=== PATIENT | female | born 1940 ===

== ENCOUNTER 2017-06-18 20:30 | Inpatient (IN) | payer MEDICARE ==
[2017-06-18 20:30] VITALS: BMI 39.9
[2017-06-18] MEDS ORDERED: Albuterol-Ipratrop 3 mg / 0.5 (3 ml) UD IH STA (21:59)
[2017-06-18] MEDS ORDERED: Albuterol-Ipratrop 3 mg / 0.5 (3 ml) UD ONE (22:16)
[2017-06-18 22:17] LABS: BASO # 0.1 K/uL (0.0-0.2); BASO % 0.9 % (0.0-2.0); EOS # 0.4 K/uL (0.0-0.7); EOS % 4.2 % (0.0-4.0); HEMATOCRIT 29.6 % (34.0-47.0); LYMPH # 1.4 K/uL (1.0-4.3); LYMPH % 15.2 % (20.0-40.0); MEAN CELL VOLUME 91.3 fL (81.0-99.0); MEAN CORPUSCULAR HEMOGLOBIN 28.9 pg (27.0-31.0); MEAN CORPUSCULAR HGB CONC 31.6 g/dL (33.0-37.0); MEAN PLATELET VOLUME 9.4 fL (7.2-11.7); MONO # 1.1 K/uL (0.0-0.8); MONO % 12.6 % (0.0-10.0); RED CELL DISTRIBUTION WIDTH 19.5 % (11.5-14.5)
[2017-06-18 22:23] LABS: RBC URINE 1 /hpf (0-3); URINE BACTERIA RARE (<OCC); URINE BILIRUBIN NEGATIVE (NEGATIVE); URINE BLOOD NEGATIVE (NEGATIVE); URINE COLOR Straw (YELLOW); URINE GLUCOSE (UA) NORMAL (Normal); URINE KETONE NEGATIVE (NEGATIVE); URINE LEUKOCYTE ESTERASE NEG Leu/uL (Negative); URINE PROTEIN NEGATIVE (NEGATIVE); URINE UROBILINOGEN NORMAL mg/dL (0.2-1.0); WBC URINE 2 /hpf (0-5)
[2017-06-18 22:32] LABS: ALB/GLOB RATIO 1.2 (1.0-2.1); ALKALINE PHOSPHATASE 60 U/L (38-126); ALT/SGPT 29 U/L (9-52); AST/SGOT 26 U/L (14-36); BILIRUBIN,TOTAL 0.3 mg/dL (0.2-1.3); BLOOD UREA NITROGEN 31 mg/dL (7-17); CALCIUM 8.8 mg/dl (8.6-10.4); CARBON DIOXIDE 18 mmol/L (22-30); CHLORIDE 116 mmol/L (98-107); GFR AFRICAN-AMERICAN 38; GLUCOSE,RANDOM 89 mg/dL (65-105); MAGNESIUM 2.1 mg/dL (1.6-2.3); POTASSIUM 4.2 mmol/L (3.6-5.2); SODIUM 147 mmol/L (132-148); TOTAL PROTEIN 6.6 g/dL (6.3-8.3)
[2017-06-18] MEDS ORDERED: Nitroglycerin 2% Ointment Foilpak UD TOP STA (23:05)
[2017-06-18] MEDS ORDERED: Nitroglycerin 2% Ointment Foilpak UD TOP ONE (23:13)
--- NOTE | 2017-06-18 23:55 | C.PDOC ---
Time Seen by Provider: 06/18/17 21:48 Chief Complaint (Nursing): Shortness Of Breath History Per: Patient, Family Onset/Duration Of Symptoms: Days (few) Current Symptoms Are (Timing): Worse Current Respiratory Medications: See Home Med List Severity: Moderate Associated Symptoms: Chest Pain, Ankle/Leg Swelling Additional History Per: Prior Records Past Medical History Reviewed: Historical Data, Nursing Documentation, Vital Signs Vital Signs: Last Vital Signs Temp 98.4 F 06/18/17 21:03 Pulse 60 06/18/17 23:08 Resp 23 06/18/17 23:08 BP 137/48 L 06/18/17 23:08 Pulse Ox 97 06/18/17 23:08 - Medical History PMH: Arthritis, Back Problems, Colonic Polyps, Diabetes, Gastritis, HTN, Hypercholesterolemia, Rheumatoid Arthritis, TIA (3 YEARS AGO) Surgical History: Back Surgery (WITH HARDWARE), Cholecystectomy, Endoscopy - [facility] Procedures COLONOSCOPY (12/30/14) ENDOSC POLYPECTOMY OF LG INTEST (03/03/15) Family History: States: Unknown Family Hx - Social History Hx Tobacco Use: No Hx Alcohol Use: No Hx Substance Use: No - Immunization History Hx Tetanus Toxoid Vaccination: No Hx Influenza Vaccination: Yes Hx Pneumococcal Vaccination: Yes Review Of Systems Except As Marked, All Systems Reviewed And Found Negative. Constitutional: Negative for: Fever Cardiovascular: Positive for: Chest Pain, Edema Respiratory: Positive for: Shortness of Breath. Negative for: Hemoptysis Gastrointestinal: Negative for: Vomiting Genitourinary: Positive for: Frequency Musculoskeletal: Negative for: Neck Pain Neurological: Negative for: Weakness, Numbness Physical Exam - Physical Exam Appears: No Acute Distress, Chronically Ill Skin: Normal Color, Warm, Dry Head: Atraumatic, Normacephalic Eye(s): bilateral: PERRL, EOMI Neck: Normal ROM, Supple Cardiovascular: Rhythm Regular Respiratory: No Accessory Muscle Use, Rales Gastrointestinal/Abdominal: Soft, No Tenderness Extremity: Normal ROM, Pedal Edema Neurological/Psych: Oriented x3, Normal Motor, Normal Sensation ED Course And Treatment - Laboratory Results Result Diagrams: 06/18/17 21:57 06/18/17 22:16 Lab Interpretation: Abnormal Interpretation Of Abnormal: Elevated BNP. Anemia. Renal insufficiency. ECG: Interpreted By Me, Viewed By Me ECG Rhythm: Sinus Rhythm, Nonspecific Changes Rate From EC O2 Sat by Pulse Oximetry: 97 Pulse Ox Interpretation: Normal - Radiology CXR: Interpreted by Me, Viewed By Me CXR Interpretation: Yes: Cardiomegaly, Other (CHF) Progress Note: BP improved after Nitropaste. Progress - Interventions Interventions:: Observation, Oxygen - Medications Administered Oral: Antihypertensive, Aspirin - Data Reviewed Data Reviewed: Lab, Diagnostic imaging, EKG, Old records - Patient Status Patient status: Partially improved - Critical Care Citical Care: Excluding Proc Time Critical Care Time: 45 minutes - Continuity of Care Discussed patient case with:: Patient, Family-HIPPA compliant, ED Nurse, PMD - Patient Plan Patient Plan: Admission, Telemetry Disposition Discussed With DrJayme: Victor Hugo Mccoy Comment: He accepted pt on his service and gave admitting orders to the nurse. Doctor Will See Patient In The: Hospital Counseled Patient/Family Regarding: Studies Performed, Diagnosis - Disposition Disposition: HOSPITALIZED Disposition Time: 23:56 Condition: FAIR - Clinical Impression Clinical Impression: New onset of congestive heart failure
[2017-06-19] MEDS ORDERED: ZOLPIDEM 5 MG PO PRN (00:20)
[2017-06-19 01:14] LABS: INR 1.1
[2017-06-19] MEDS ORDERED: Nitroglycerin 2% Ointment Foilpak UD TOP ONE (06:11)
[2017-06-19] MEDS: Nitroglycerin 2% Ointment Foilpak UD TOP SCH ×3 (06:13→17:39)
--- NOTE | 2017-06-19 08:48 | RAD ---
PROCEDURE: CHEST RADIOGRAPH, 1 VIEW HISTORY: SOB COMPARISON: Comparison is made to 05/20/2017 FINDINGS: LUNGS: Interval worsening of reticular opacity at the mid and lower portion of the lungs suspicious for pulmonary vascular congestion since the previous exam. PLEURA: Blunting of the right costophrenic angle likely due to small pleural effusion. CARDIOVASCULAR: The cardiac silhouette is enlarged. OSSEOUS STRUCTURES: No significant abnormalities. VISUALIZED UPPER ABDOMEN: Normal. OTHER FINDINGS: None. IMPRESSION: Findings suspicious for worsening CHF.
[2017-06-19] MEDS ORDERED: LEFLUNOMIDE 20 MG PO SCH (10:00)
[2017-06-19] MEDS ORDERED: (Novolin N) Insulin Human Isophane (NPH) 100 u/ml 10 ml vial SC SCH (10:00)
[2017-06-19] MEDS ORDERED: (Novolin R) Insulin Human Regular 100 units/ml vial SC SCH (10:00)
[2017-06-19] MEDS: LEFLUNOMIDE 20MG TABLET PO SCH (10:30)
[2017-06-19] MEDS: GlipiZIDE 5 mg SR Tab PO SCH ×2 (10:58→17:39)
[2017-06-19] MEDS: (Novolog) Insulin Aspart, Recombinant 100 u/ml 10 ml vial SC SCH ×2 (17:11→21:30)
--- NOTE | 2017-06-19 23:43 | HP ---
HISTORY OF PRESENT ILLNESS: This is a 77-year-old female with a history of multiple medical problems including diabetes, hypertension, high cholesterol, history of TIA, severe osteoarthritis, possible rheumatoid, under the care of sheep clipper and senior product development scientist, Dr. Mejia and Dr. Brandie Vegas respectively, who came to the emergency room with a history of shortness of breath. Chest x-ray and physical exam along with proBNP was consistent with congestive heart failure. She was recommended admission. PAST MEDICAL HISTORY: History of severe arthritis, back surgery, gastritis, diabetes, hypertension, high cholesterol, history of TIAs 3 years ago. Cholecystectomy. She has been seen by Dr. Coreas to my recollection in the past. MEDICATIONS: At home, she is maintained on Ambien, aspirin, Bystolic 20 mg, glipizide 10 mg twice a day, Lasix 20 mg, Norvasc 5 mg. She is on insulin, Xanax 0.5 mg three times a day. She is also on control drugs, Percocet, Vicodin with other doctor. To my recollection, echocardiogram has been unremarkable with normal LV systolic function in the past. REVIEW OF SYSTEMS: Generalized weakness is noted. Shortness of breath. No fever, no chills, no hemoptysis, no abdominal pain, no vomiting. Frequency is noted. No hematuria. Musculoskeletal: Multiple joint pains, back pains. Neurological: Generalized weakness. No visual disturbances. No history of depression, but anxiety, cannot sleep. PHYSICAL EXAMINATION GENERAL: Elderly female, in no acute distress at this time. VITAL SIGNS: She is 4 feet 11 inches, weighs 200 pounds. Blood pressure was 137/48, repeat one initially was 170/60; heart rate of 88; respiratory rate of 20; afebrile. HEENT: Normal. NECK: Supple. HEART: PMI is not localized. S1, S2 distant. No definite gallops. Grade 2/6 holosystolic murmur in mitral area. LUNGS: Show decreased air entry at both the bases. ABDOMEN: Soft. EXTREMITIES: Unremarkable. No cyanosis, clubbing, or edema. Distal pulses are 1+. No focal sign. LABORATORY DATA: Hemoglobin is 9.3, BUN is 31, creatinine is 1.6. ProBNP was 1200. Chest x-ray had shown CHF. EKG as per ER physician had shown sinus rhythm, nonspecific ST-T changes. ASSESSMENT: This is a 77-year-old female with history of congestive heart failure. PLAN: To continue with beta blockers and small dose of diuretics. We will review the echocardiogram that we have done in the office, may need HERNAN inhibitors. Victor Hugo Mccoy MD
[2017-06-20] MEDS: Nitroglycerin 2% Ointment Foilpak UD TOP SCH ×4 (00:11→17:43)
[2017-06-20 00:12] VITALS: RESP 20
[2017-06-20] MEDS: Pantoprazole 40 mg EC Tab PO SCH (09:48)
[2017-06-20] MEDS: LEFLUNOMIDE 20MG TABLET PO SCH (09:48)
[2017-06-20] MEDS: GlipiZIDE 5 mg SR Tab PO SCH (09:50)
[2017-06-20] MEDS: (Novolog) Insulin Aspart, Recombinant 100 u/ml 10 ml vial SC SCH ×3 (13:10→21:06)
--- NOTE | 2017-06-20 15:08 | CP.PCM.CON ---
History of Present Illness - History of Present Illness History of Present Illness: reason for consultation: shortness of breath 77-year-old female with history of TIA, arthritis, Diabetes, hypertension, hypercholesterolemia presented to emergency room with worsening shortness of breath and swelling of legs. Denies fever chills, denies chest pain, denies cough. Chest x-ray done in the emergency consistent with CHF. Patient denies history of smoking, asthma or COPD. complaining of nocturnal snoring and awakening at night Review of Systems - Review of Systems All systems: reviewed and no additional remarkable complaints except (shortness of breath) Past Patient History - Infectious Disease Hx of Infectious Diseases: None - Past Medical History & Family History Past Medical History?: Yes - Past Social History Smoking Status: Never Smoked - CARDIAC Hx Hypercholesterolemia: Yes Hx Hypertension: Yes - PULMONARY Hx Respiratory Disorders: No - NEUROLOGICAL Hx Transient Ischemic Attacks (TIA): Yes (3 YEARS AGO) - HEENT Hx HEENT Problems: Yes Hx Cataracts: Yes (KENDRA.) - RENAL Hx Chronic Kidney Disease: No - ENDOCRINE/METABOLIC Hx Endocrine Disorders: Yes Hx Diabetes Mellitus Type 2: Yes - HEMATOLOGICAL/ONCOLOGICAL Hx Blood Disorders: No Hx Blood Transfusions: No - INTEGUMENTARY Hx Dermatological Problems: No - MUSCULOSKELETAL/RHEUMATOLOGICAL Hx Falls: No - GASTROINTESTINAL Hx Gastritis: Yes - GENITOURINARY/GYNECOLOGICAL Hx Genitourinary Disorders: No Hx Urinary Tract Infection: Yes - PSYCHIATRIC Hx Substance Use: No - SURGICAL HISTORY Hx Cholecystectomy: Yes - ANESTHESIA Hx Anesthesia: Yes Hx Anesthesia Reactions: No Hx Malignant Hyperthermia: No Meds Allergies/Adverse Reactions: Allergies Allergy/AdvReac Type Severity Reaction Status Date / Time No Known Allergies Allergy Verified 10/25/16 08:00 - Medications Medications: Current Medications Alprazolam (Xanax) 0.25 mg PO BID [facility] Stop: 06/26/17 10:01 Last Admin: 06/20/17 09:48 Dose: 0.25 mg Amlodipine Besylate (Norvasc) 5 mg PO DAILY [facility] Last Admin: 06/20/17 09:50 Dose: 5 mg Aspirin (Aspirin Chewable) 81 mg PO DAILY [facility] Last Admin: 06/20/17 09:49 Dose: 81 mg Furosemide (Lasix) 20 mg IVP BID [facility] Last Admin: 06/20/17 09:49 Dose: 20 mg Glipizide (Glucotrol Xl) 5 mg PO DAILY [facility] Last Admin: 06/20/17 09:50 Dose: 5 mg Heparin Sodium (Porcine) (Heparin) 5,000 units SC Q12 [facility] Last Admin: 06/20/17 09:48 Dose: 5,000 units Home Med (Patient's Own Medication) 1 tab PO DAILY [facility] Last Admin: 06/20/17 09:48 Dose: 1 tab Insulin Aspart (Novolog) 0 unit SC ACHS [facility] PRN Reason: Protocol Last Admin: 06/20/17 13:10 Dose: 1 unit Insulin Human NPH (Novolin N) 50 unit SC QPM [facility] Insulin Human Regular (Novolin R) 14 unit SC ACB [facility] Levothyroxine Sodium (Synthroid) 25 mcg PO DAILY@0630 [facility] Nebivolol (Bystolic) 20 mg PO DAILY [facility] Last Admin: 06/20/17 09:48 Dose: 20 mg Nitroglycerin (Nitro-Bid 2% Oint) 1 ea TOP Q6 [facility] Last Admin: 06/20/17 12:58 Dose: 1 ea Pantoprazole Sodium (Protonix Ec Tab) 40 mg PO DAILY [facility] Last Admin: 06/20/17 09:48 Dose: 40 mg Pneumococcal Polyvalent Vaccine (Pneumovax 23 Vaccine) 0.5 ml IM .ONCE ONE Stop: 06/22/17 10:01 Zolpidem Tartrate (Ambien) 5 mg PO HS PRN PRN Reason: Sleep Physical Exam - Head Exam Head Exam: ATRAUMATIC, NORMOCEPHALIC - ENT Exam ENT Exam: Mucous Membranes Moist - Neck Exam Neck exam: Positive for: Normal Inspection - Respiratory Exam Respiratory Exam: Rales - Cardiovascular Exam Cardiovascular Exam: REGULAR RHYTHM - GI/Abdominal Exam GI & Abdominal Exam: Normal Bowel Sounds, Soft - Extremities Exam Extremities exam: Positive for: pedal edema - Neurological Exam Neurological exam: Alert, Oriented x3 Results - Vital Signs Recent Vital Signs: Last Vital Signs Temp 97.9 F 06/20/17 08:00 Pulse 67 06/20/17 13:09 Resp 20 06/20/17 08:00 BP 132/75 06/20/17 13:09 Pulse Ox 97 06/20/17 08:00 - Labs Result Diagrams: 06/18/17 21:57 06/18/17 22:16 Labs: Laboratory Results - last 24 hr 06/19/17 06/19/17 06/20/17 16:11 21:01 06:15 POC Glucose (mg/dL) 249 H 100 71 06/20/17 11:24 POC Glucose (mg/dL) 189 H Assessment & Plan (1) Dyspnea Status: Acute Comment: most likely secondary to CHF. Echocardiogram and Lasix. Sleep study as outpatient because of history of snoring (2) New onset of congestive heart failure Status: Acute (3) HTN (hypertension) Status: Acute
--- NOTE | 2017-06-20 17:11 | CP.PCM.PN ---
Subjective - Date & Time of Evaluation Date of Evaluation: 06/20/17 Time of Evaluation: 17:10 - Subjective Subjective: less sob.pul consult buddy. Objective - Vital Signs/Intake and Output Vital Signs (last 24 hours): Temp Pulse Resp BP Pulse Ox 98.4 F 63 20 189/63 H 98 06/20/17 16:18 06/20/17 16:18 06/20/17 16:18 06/20/17 16:18 06/20/17 16:18 Intake and Output: 06/20/17 06/20/17 06:59 18:59 Intake Total 300 Balance 300 - Medications Medications: Current Medications Alprazolam (Xanax) 0.25 mg PO BID [facility] Stop: 06/26/17 10:01 Last Admin: 06/20/17 09:48 Dose: 0.25 mg Amlodipine Besylate (Norvasc) 5 mg PO DAILY [facility] Last Admin: 06/20/17 09:50 Dose: 5 mg Aspirin (Aspirin Chewable) 81 mg PO DAILY [facility] Last Admin: 06/20/17 09:49 Dose: 81 mg Furosemide (Lasix) 20 mg IVP BID [facility] Last Admin: 06/20/17 09:49 Dose: 20 mg Glipizide (Glucotrol Xl) 5 mg PO DAILY [facility] Last Admin: 06/20/17 09:50 Dose: 5 mg Heparin Sodium (Porcine) (Heparin) 5,000 units SC Q12 [facility] Last Admin: 06/20/17 09:48 Dose: 5,000 units Home Med (Patient's Own Medication) 1 tab PO DAILY [facility] Last Admin: 06/20/17 09:48 Dose: 1 tab Insulin Aspart (Novolog) 0 unit SC ACHS [facility] PRN Reason: Protocol Last Admin: 06/20/17 16:33 Dose: 1 unit Insulin Human NPH (Novolin N) 50 unit SC QPM [facility] Insulin Human Regular (Novolin R) 14 unit SC ACB [facility] Levothyroxine Sodium (Synthroid) 25 mcg PO DAILY@0630 [facility] Nebivolol (Bystolic) 20 mg PO DAILY [facility] Last Admin: 06/20/17 09:48 Dose: 20 mg Nitroglycerin (Nitro-Bid 2% Oint) 1 ea TOP Q6 [facility] Last Admin: 06/20/17 12:58 Dose: 1 ea Pantoprazole Sodium (Protonix Ec Tab) 40 mg PO DAILY [facility] Last Admin: 06/20/17 09:48 Dose: 40 mg Pneumococcal Polyvalent Vaccine (Pneumovax 23 Vaccine) 0.5 ml IM .ONCE ONE Stop: 06/22/17 10:01 Zolpidem Tartrate (Ambien) 5 mg PO HS PRN PRN Reason: Sleep - Labs Labs: PT 11.8 SECONDS (9.7-12.2) 06/19/17 01:02 INR 1.1 06/19/17 01:02 APTT 32 SECONDS (21-34) 06/19/17 01:02 - Constitutional Appears: No Acute Distress - Eye Exam Eye Exam: Normal appearance - Respiratory Exam Respiratory Exam: Clear to Ausculation Bilateral - Cardiovascular Exam Cardiovascular Exam: REGULAR RHYTHM - GI/Abdominal Exam GI & Abdominal Exam: Soft - Extremities Exam Extremities Exam: absent: Pedal Edema - Neurological Exam Neurological Exam: Alert Assessment and Plan - Assessment and Plan (Free Text) Assessment: chf,better, will d/c home in am
[2017-06-20] MEDS ORDERED: (Novolin N) Insulin Human Isophane (NPH) 100 u/ml 10 ml vial SC SCH (18:00)
[2017-06-21] MEDS: Nitroglycerin 2% Ointment Foilpak UD TOP SCH ×3 (00:13→12:59)
[2017-06-21] MEDS ORDERED: Levothyroxine 25 MCG TAB PO SCH (06:30)
[2017-06-21] MEDS ORDERED: (Novolin R) Insulin Human Regular 100 units/ml vial SC SCH (07:30)
[2017-06-21 07:49] LABS: POTASSIUM 3.8 mmol/L (3.6-5.2)
[2017-06-21 07:52] LABS: CALCIUM 9.1 mg/dl (8.6-10.4)
[2017-06-21 08:41] VITALS: TEMP 97.8; O2SAT 94
[2017-06-21] MEDS: LEFLUNOMIDE 20MG TABLET PO SCH (09:52)
[2017-06-21] MEDS: Pantoprazole 40 mg EC Tab PO SCH (09:52)
[2017-06-21] MEDS: GlipiZIDE 5 mg SR Tab PO SCH (09:53)
[2017-06-21] MEDS: (Novolog) Insulin Aspart, Recombinant 100 u/ml 10 ml vial SC SCH ×2 (09:55→13:07)
[2017-06-21] MEDS ORDERED: ACETAMINOPHEN PO SCH (10:45)
[2017-06-21] MEDS ORDERED: HYDROCODONE PO SCH (10:45)
[2017-06-21] MEDS ORDERED: Iohexol 240 (50 ml) PO ONE (11:00)
[2017-06-21 13:06] VITALS: BP 129/62; PULSE 75
[2017-06-21] MEDS ORDERED: Pneumococcal 23-Valent Vaccine IM ONE (15:00)
--- NOTE | 2017-06-21 15:20 | PCM.HF ---
Heart Failure Core Measure - Heart Failure Ejection Fraction: 40 % or Greater HERNAN Inhibitor Prescribed: No Contraindication/Reason for not providing: on arb Beta-Sue Prescribed: Bisoprolol Angiotensin II Receptor Sue Prescribed: Yes AnticoagulationTherapy for Atrial Fibrillation/Atrialflutter: No Contraindication/Reason for not providing: no hx of a fib Aldosterone Antagonist Prescribed: No Contraindication/Reason for not providing: EF>50 Hydralazine Nitrate Prescribed: No Contraindication/Reason for not providing: ef>50 Implantable Cardioverter Defibrillator Therapy: No Contraindication/Reason for not providing: ef>50 Cardiac Resynchronization Therapy Prescribed: No Contraindication/Reason for not providing: ef>50 - Follow up Will be discharged to: Home Follow Up Date (must be within 7 days from discharge): 06/24/17 Follow Up Time: 09:00
--- NOTE | 2017-06-21 15:52 | CT ---
PROCEDURE: CT Abdomen and Pelvis without IV contrast. HISTORY: Abdominal pain COMPARISON: CT abdomen and pelvis without IV contrast performed 03/09/16 TECHNIQUE: Contiguous axial images of the abdomen and pelvis. Oral contrast was administered. No IV contrast given. Coronal and Sagittal reformats generated and reviewed. Radiation dose: Total exam DLP = 1053.08 mGy-cm. This CT exam was performed using one or more of the following dose reduction techniques: Automated exposure control, adjustment of the mA and/or kV according to patient size, and/or use of iterative reconstruction technique. FINDINGS: There is limited evaluation of the solid organs without the administration of IV contrast. LOWER THORAX: No visible consolidation, pleural effusion, or pneumothorax. Small hiatal hernia/distal esophageal wall thickening with evidence of gastroesophageal reflux. LIVER: Unremarkable unenhanced appearance. GALLBLADDER AND BILE DUCTS: Cholecystectomy. PANCREAS: Atrophy. SPLEEN: Unremarkable unenhanced appearance. ADRENALS: Unremarkable unenhanced appearance. KIDNEYS AND URETERS: Atrophic bilateral kidneys. 2.1 cm low-density lesion within the right upper pole kidney appears cystic. No hydronephrosis or obstructing renal calculus. BLADDER: Mildly thick-walled under distended urinary bladder. REPRODUCTIVE: Uterus is present. APPENDIX: No secondary signs of acute appendicitis. BOWEL: The stomach is nondistended. The bowel loops appear within normal limits of caliber without evidence of intestinal obstruction. Diverticulosis without CT evidence of acute diverticulitis. PERITONEUM: No significant free fluid. No definite free air. LYMPH NODES: No bulky lymphadenopathy identified. VASCULATURE: No aortic aneurysm. BONES: Scoliosis. Posterior lumbar fusion L4-L5. Multilevel degenerative changes. OTHER FINDINGS: None. IMPRESSION: Small hiatal hernia/ distal esophageal wall thickening with evidence of gastroesophageal reflux. Cholecystectomy. Pancreatic atrophy. Atrophic bilateral kidneys. 2.1 cm low-density lesion within the right upper pole kidney appears cystic. Diverticulosis without CT evidence of acute diverticulitis. Scoliosis. Posterior lumbar fusion at L4-L5.
--- NOTE | 2017-06-21 22:33 | CARD ---
APPROVED REPORT EKG Measurement Heart [id number] <Conclusion> Normal sinus rhythm Low voltage QRS Septal infarct, age undetermined Abnormal ECG
--- NOTE | 2017-06-22 09:32 | DS ---
HISTORY OF PRESENT ILLNESS: A 77-year-old female was brought in with a history of shortness of breath. She had a mild congestive heart failure. She is diabetic, hypertensive. There was an echocardiogram which was done in the past, there was no need to repeat. To my recollection, LV systolic function has been normal. No significant valvular heart disease . She was given small dose of diuretics with the improvement. She does have some vague abdominal pain and discussed the case with KATY Jauregui MD, who has gone to order the CT of the abdomen and has an appointment to see him tomorrow. PHYSICAL EXAMINATION: GENERAL: She is asymptomatic. VITAL SIGNS: At this point, vital signs are stable. LUNGS: Clear. LABORATORY DATA: Troponins were negative. EKG did not have any acute changes. PLAN: We will discharge her to be followed up as an outpatient on the same antihypertensive medications and diabetic medication. She has a history of multiple arthritis, pains, back pains and the rolling walker has been given. She also has an appointment to see epidemiology investigator and she has been under controlled substance and antiinflammatory medication, which might make her abdominal pain worse. She will see Dr. Brandie Vegas as an outpatient for diabetes. FINAL DIAGNOSES: Mild congestive heart failure, systolic, chronic. Diabetes and hypertension. Victor Hugo Mccoy MD
[2017-06-22] MEDS ORDERED: Pneumococcal 23-Valent Vaccine IM ONE (10:00)
== END 2017-06-21 15:40 | disposition home or self-care (01) | DRG 293 ==
LOC: C.ER 20:30 → C.9E 06-19 00:34 → C.5S 06-19 09:06
PROVIDERS: ADMIT Internal Medicine Cardiovascular Disease; ATTEND Internal Medicine Cardiovascular Disease
DX: I11.0 Hypertensive heart disease with heart failure (principal); E11.9 Type 2 diabetes mellitus without complications; M06.9 Rheumatoid arthritis, unspecified; I50.22 Chronic systolic (congestive) heart failure; E78.00 Pure hypercholesterolemia, unspecified; M19.90 Unspecified osteoarthritis, unspecified site; Z86.010 Personal history of colon polyps; Z86.73 Personal history of transient ischemic attack (TIA), and cerebral infarction without residual deficits; Z87.440 Personal history of urinary (tract) infections; K29.70 Gastritis, unspecified, without bleeding

== ENCOUNTER 2017-10-27 09:53 | Inpatient (IN) | payer MEDICARE ==
[2017-10-27 10:11] VITALS: BMI 41.2
[2017-10-27] MEDS ORDERED: Albuterol 0.083% Inhal Sol (2.5 mg/3 mL) UD INH STA (11:01)
--- NOTE | 2017-10-27 11:08 | C.PDOC ---
History Of Present Illness 77 yr old female presents to the ER for evaluation of abdominal pain, radiating down to the pelvis and leg for the past 1 week. Denies fever, chills, chest pain , SOB, nausea, vomiting or dysuria. Time Seen by Provider: 10/27/17 10:47 Chief Complaint (Nursing): Abdominal Pain History Per: Patient History/Exam Limitations: no limitations Onset/Duration Of Symptoms: Days (1 week) Past Medical History Reviewed: Historical Data, Nursing Documentation, Vital Signs Vital Signs: Last Vital Signs Temp 97 F L 10/27/17 12:30 Pulse 73 10/27/17 12:30 Resp 18 10/27/17 12:30 BP 121/68 10/27/17 12:30 Pulse Ox 98 10/27/17 12:34 - Medical History PMH: Arthritis, Back Problems, Colonic Polyps, Diabetes, Gastritis, HTN, Hypercholesterolemia, Rheumatoid Arthritis, TIA (3 YEARS AGO) Surgical History: Back Surgery (WITH HARDWARE), Cholecystectomy, Endoscopy - [facility] Procedures COLONOSCOPY (12/30/14) ENDOSC POLYPECTOMY OF LG INTEST (03/03/15) Family History: States: No Known Family Hx - Social History Hx Tobacco Use: No Hx Alcohol Use: No Hx Substance Use: No - Immunization History Hx Tetanus Toxoid Vaccination: No Hx Influenza Vaccination: Yes Hx Pneumococcal Vaccination: Yes Review Of Systems Except As Marked, All Systems Reviewed And Found Negative. Constitutional: Negative for: Fever, Chills Cardiovascular: Negative for: Chest Pain Respiratory: Negative for: Shortness of Breath Gastrointestinal: Positive for: Abdominal Pain. Negative for: Nausea, Vomiting Genitourinary: Negative for: Dysuria Physical Exam - Physical Exam Appears: Non-toxic, No Acute Distress Skin: Warm, Dry, No Rash Head: Atraumatic, Normacephalic Oral Mucosa: Moist Cardiovascular: Rhythm Regular, No Murmur Respiratory: No Rales, No Rhonchi, No Stridor, Wheezing (faint expirtory wheez, bilateral) Gastrointestinal/Abdominal: Normal Exam, Soft, No Tenderness, No Guarding, No Rebound Extremity: Normal ROM, No Swelling, Other ((+) +1 bilateral pitting edema) Neurological/Psych: Oriented x3, Normal Speech, Normal Motor ED Course And Treatment - Laboratory Results Result Diagrams: 10/27/17 11:44 10/27/17 11:44 O2 Sat by Pulse Oximetry: 98 (RA) Pulse Ox Interpretation: Normal - CT Scan/US CT - Abd & Pelvis Other Rad Studies (CT/US): Read By Radiologist, Radiology Report Reviewed CT/US Interpretation: PROCEDURE: CT scan abdomen pelvis dated 10/27/2017. HISTORY: Abdominal pain. COMPARISON: Comparison made with prior CT scan of the abdomen pelvis 06/21/2017. TECHNIQUE: Contiguous helical/transaxial images of the abdomen and pelvis performed without oral or intravenous contrast. Coronal and sagittal reformats generated. Radiation dose: Total exam DLP = 1147.39 mGy-cm. This CT exam was performed using one or more of the following dose reduction techniques: Automated exposure control, adjustment of the mA and/or kV according to patient size, and/or use of iterative reconstruction technique. FINDINGS: LOWER THORAX: Patchy nodular/alveolar- type infiltrate changes seen in the right lung base and right middle lobe. Mild passive/dependent type atelectasis both posterior sulci. LIVER: Liver exhibits normal size. No evidence of hepatic masses or collections seen on this noncontrast study. Gallbladder has been. GALLBLADDER AND BILE DUCTS: Gallbladder has been surgically resected with metallic clips again seen in the gallbladder fossa. PANCREAS: Pancreas masses is atrophic and fatty replaced. No pancreatic masses or collections. No significant pancreatic ductal dilatation. SPLEEN: Unremarkable. No splenomegaly. ADRENALS: There are no adrenal lesions. KIDNEYS AND URETERS: Kidneys are diminutive left more significant than the right. Again seen is a cyst posteromedial aspect upper/ midpole left kidney. BLADDER: Urinary bladder is physiologically distended. No evidence of intraluminal urinary bladder calculi. REPRODUCTIVE: Peripheral presumed vascular calcifications of along the peripheral margins of the uterus unchanged. APPENDIX: Normal-appearing appendix. BOWEL: There is a small hiatal hernia. Evaluation of the bowel is limited due to the lack of oral contrast. Stomach is incompletely distended. . Visualized loops of small bowel exhibit normal contour and caliber. No evidence of acute mechanical small bowel obstruction. There are scattered colonic diverticula seen along the sigmoid and to a lesser degree distal descending colon. No radiographic evidence of acute diverticulitis. PERITONEUM: Unremarkable. No fluid collection. No free air. Incidental note made of infiltration changes within the subcutaneous fat left upper abdomen nonspecific. LYMPH NODES: Unremarkable. No enlarged lymph nodes. VASCULATURE: Unremarkable. No aortic aneurysm. BONES: Postoperative posterior fixation changes L4-L5 segments again noted on altered from prior study. Multilevel degenerative spondylosis of the lumbar and lower thoracic spine. There is a mild dextroscoliosis centered in the lower thoracic region. OTHER FINDINGS: None. IMPRESSION: Patchy nodular/alveolar-type infiltrates changes right lower lobe and middle lobes. Changes of cholecystectomy again noted. Kidneys are diminutive more so on the left than right with. Stable appearing cyst upper pole right kidney. Scattered colonic diverticula without radiographic evidence of acute diverticulitis. Medical Decision Making Medical Decision Making: IMPRESSION: Abdominal pain/CHF PLAN: * CT - Abd & Pelvis * CXR * EKG * Troponin * CBC * CMP * BNP * Urinalysis * Albuterol INH NOTE: * Patient to be admitted to Dr. Mccoy for CHF, tele Disposition Discussed With : Victor Hugo Mccoy Doctor Will See Patient In The: ED Counseled Patient/Family Regarding: Studies Performed, Diagnosis - Disposition Disposition: HOSPITALIZED Disposition Time: 12:26 Condition: FAIR - Clinical Impression Clinical Impression: CHF (congestive heart failure) - Scribe Statement The provider has reviewed the documentation as recorded by the Fengibdayron Perez Provider Attestation: All medical record entries made by the Fengibdayron were at my direction and personally dictated by me. I have reviewed the chart and agree that the record accurately reflects my personal performance of the history, physical exam, medical decision making, and the department course for this patient. I have also personally directed, reviewed, and agree with the discharge instructions and disposition.
[2017-10-27] MEDS ORDERED: Albuterol 0.083% Inhal Sol (2.5 mg/3 mL) UD ONE (11:38)
[2017-10-27 11:49] LABS: BASO # 0.1 K/uL (0.0-0.2); BASO % 0.8 % (0.0-2.0); EOS # 0.5 K/uL (0.0-0.7); EOS % 4.5 % (0.0-4.0); HEMOGLOBIN 9.9 g/dL (11.0-16.0); LYMPH # 0.9 K/uL (1.0-4.3); LYMPH % 8.3 % (20.0-40.0); MEAN CORPUSCULAR HEMOGLOBIN 31.4 pg (27.0-31.0); MEAN CORPUSCULAR HGB CONC 33.4 g/dL (33.0-37.0); MEAN PLATELET VOLUME 9.5 fL (7.2-11.7); MONO # 0.8 K/uL (0.0-0.8); MONO % 7.6 % (0.0-10.0); NEUT # 8.6 K/uL (1.8-7.0); NEUT % 78.8 % (50.0-75.0); PLATELET COUNT 259 K/uL (130-400); RBC 3.17 Mil/uL (3.80-5.20); RED CELL DISTRIBUTION WIDTH 16.6 % (11.5-14.5); WHITE BLOOD COUNT 10.9 K/uL (4.8-10.8)
[2017-10-27 12:04] LABS: ALBUMIN 3.6 g/dL (3.5-5.0); ALT/SGPT 22 U/L (9-52); AST/SGOT 24 U/L (14-36); BLOOD UREA NITROGEN 31 mg/dL (7-17); CALCIUM 8.7 mg/dl (8.6-10.4); GFR AFRICAN-AMERICAN 38; GFR NON-AFRICAN AMERICAN 31; LIPASE 39 U/L (23-300)
[2017-10-27 12:16] LABS: B-TYPE NATRIURETIC PEPTIDE 1600 pg/mL (0-900); BANDS 6 % (0-2); BASOPHIL 1 % (0-2); EOSINOPHIL 4 % (0-4); LYMPHOCYTE 5 % (20-40); MONOCYTE 5 % (0-10); NEUTROPHIL 79 % (50-75); TOTAL CELLS COUNTED 100
[2017-10-27 12:17] LABS: PLATELET ESTIMATE NORMAL (NORMAL)
[2017-10-27 12:20] LABS: LARGE PLATELETS PRESENT
[2017-10-27 12:21] LABS: HYPOCHROMIC SLIGHT; POLYCHROMIC SLIGHT
[2017-10-27 12:22] LABS: ANISOCYTOSIS MODERATE; POIKILOCYTOSIS SLIGHT
[2017-10-27 12:24] LABS: OVALOCYTES SLIGHT; SCHISTOCYTES SLIGHT
[2017-10-27 14:18] LABS: SQUAMOUS EPITHIAL < 1 /hpf (0-5); URINE BILIRUBIN NEGATIVE (NEGATIVE); URINE BLOOD NEGATIVE (NEGATIVE); URINE CLARITY Clear (Clear); URINE COLOR Colorless (YELLOW); URINE GLUCOSE (UA) NORMAL (Normal); URINE LEUKOCYTE ESTERASE NEG Leu/uL (Negative); URINE NITRATE NEGATIVE (NEGATIVE); URINE PROTEIN NEGATIVE (NEGATIVE); URINE UROBILINOGEN NORMAL mg/dL (0.2-1.0)
--- NOTE | 2017-10-27 15:45 | CT ---
PROCEDURE: CT scan abdomen pelvis dated 10/27/2017 HISTORY: Abdominal pain. COMPARISON: Comparison made with prior CT scan of the abdomen pelvis 06/21/2017 TECHNIQUE: Contiguous helical/transaxial images of the abdomen and pelvis performed without oral or intravenous contrast. Coronal and sagittal reformats generated. Radiation dose: Total exam DLP = 1147.39 mGy-cm. This CT exam was performed using one or more of the following dose reduction techniques: Automated exposure control, adjustment of the mA and/or kV according to patient size, and/or use of iterative reconstruction technique. FINDINGS: LOWER THORAX: Patchy nodular/alveolar-type infiltrate changes seen in the right lung base and right middle lobe. Mild passive/dependent type atelectasis both posterior sulci LIVER: Liver exhibits normal size. No evidence of hepatic masses or collections seen on this noncontrast study. Gallbladder has been GALLBLADDER AND BILE DUCTS: Gallbladder has been surgically resected with metallic clips again seen in the gallbladder fossa. PANCREAS: Pancreas masses is atrophic and fatty replaced. No pancreatic masses or collections. No significant pancreatic ductal dilatation. SPLEEN: Unremarkable. No splenomegaly. ADRENALS: There are no adrenal lesions KIDNEYS AND URETERS: Kidneys are diminutive left more significant than the right. Again seen is a cyst posteromedial aspect upper/ midpole left kidney BLADDER: Urinary bladder is physiologically distended. No evidence of intraluminal urinary bladder calculi. REPRODUCTIVE: Peripheral presumed vascular calcifications of along the peripheral margins of the uterus unchanged. APPENDIX: Normal-appearing appendix. BOWEL: There is a small hiatal hernia. Evaluation of the bowel is limited due to the lack of oral contrast. Stomach is incompletely distended. . Visualized loops of small bowel exhibit normal contour and caliber. No evidence of acute mechanical small bowel obstruction. There are scattered colonic diverticula seen along the sigmoid and to a lesser degree distal descending colon. No radiographic evidence of acute diverticulitis. PERITONEUM: Unremarkable. No fluid collection. No free air. Incidental note made of infiltration changes within the subcutaneous fat left upper abdomen nonspecific. LYMPH NODES: Unremarkable. No enlarged lymph nodes. VASCULATURE: Unremarkable. No aortic aneurysm. BONES: Postoperative posterior fixation changes L4-L5 segments again noted on altered from prior study. Multilevel degenerative spondylosis of the lumbar and lower thoracic spine. There is a mild dextroscoliosis centered in the lower thoracic region. OTHER FINDINGS: None. IMPRESSION: Patchy nodular/alveolar-type infiltrates changes right lower lobe and middle lobes. Changes of cholecystectomy again noted. Kidneys are diminutive more so on the left than right with. Stable appearing cyst upper pole right kidney. Scattered colonic diverticula without radiographic evidence of acute diverticulitis.
--- NOTE | 2017-10-27 16:07 | RAD ---
PROCEDURE: CHEST RADIOGRAPH, 1 VIEW HISTORY: abd pain COMPARISON: 06/18/2017 FINDINGS: LUNGS: Coalescing airspace opacity -right lung base and can less dense airspace opacity right mid lung zone compatible with infiltrates PLEURA: No pneumothorax. Small right pleural effusion possible. Summation of prominent breast soft tissues another consideration CARDIOVASCULAR: Mild cardiomegaly. Minimal central pulmonary venous congestion possible -less pronounced than before OSSEOUS STRUCTURES: Minimal thoracic spondylosis. Bilateral shoulder arthrosis VISUALIZED UPPER ABDOMEN: Normal. OTHER FINDINGS: None. IMPRESSION: Right basal infiltrate suggested. Additional less dense right mid lung zone infiltrate possible.
[2017-10-27 17:34] VITALS: RESP 20
--- NOTE | 2017-10-27 20:53 | CARD ---
APPROVED REPORT EKG Measurement Heart [id number] CT 150P55 [id number] <Conclusion> Normal sinus rhythm Anteroseptal infarct, age undetermined Abnormal ECG
[2017-10-27] MEDS: (Novolin R) Insulin Human Regular 100 units/ml vial SC SCH (21:30)
--- NOTE | 2017-10-27 23:18 | HP ---
HISTORY OF PRESENT ILLNESS: This is a 77-year-old male who was brought in with history of increasing shortness of breath for past 2 days. For past 5 days, she has lost her appetite, gained 5 pounds. She has a known history of hypertension, diabetes, presumed CAD, and diffuse diverticulosis. MEDICATIONS AT HOME: Include Glucotrol XL 10 mg morning, Neurontin 300 mg twice a day, Lipitor 20 mg, Protonix 40 mg, Humulin units in the noon and 20 units in the morning, Dulera, Xanax, Bystolic 20 mg, and Diovan 320 mg. Also include, Ambien. She was on spironolactone also. Bystolic was discontinued and total of 50 mg was added. PERSONAL HISTORY: Does not smoke. Does not drink. ALLERGIES: DENIED. FAMILY HISTORY: No history of diabetes or CAD. Positive for hypertension. REVIEW OF SYSTEMS: CONSTITUTIONAL: Generalized weakness is noted. No fever. No chills. No headaches. EYES: No visual disturbances. No history or glaucoma. EARS: No hearing loss. NECK: No swollen glands. RESPIRATORY: Negative for cough. Wheezing is noted. Shortness of breath. CARDIAC: Denies any chest pain. Shortness of breath more so in past few days. Increasing edema in past 5 days. GASTROINTESTINAL: Abdominal pain, diffuse and nonspecific with a poor appetite. No hematemesis. No melena. GENITOURINARY: Negative for dysuria. MUSCULOSKELETAL: Multiple and severe osteoarthritis involving lot of joints, more so in the back, both the knee joints. She is under the care of Dr. Mejia, machine cleaner in [place]. PERIPHERAL VASCULAR SYSTEM: Negative for claudication, although she does not walk around much. NEUROLOGICAL: Tingling and numbness are noted in legs. She has peripheral neuropathy. PAST MEDICAL HISTORY: Admitted in the past for CHF in 2016, CVA in 2014 at [facility] with a good recovery, status post cholecystectomy many years ago, cataract surgery, and back surgery. PHYSICAL EXAMINATION: GENERAL: Shows elderly female who is chronically sick looking, in mild distress because of the back pains and abdominal pains. She is 4 feet 11 inches and weighs 202 pounds. VITAL SIGNS: Blood pressure is 136/70, heart rate of 60 and regular, respiratory rate of 20, afebrile. HEENT: No neck vein distention. No carotid bruits. Mouth, full upper dentures. No exudate. NECK: Supple. LUNGS: Few basal rales and decreased air entry, more in the left base. CARDIAC: PMI is not localized. S1 and S2 is distant. No definite gallops heard. A 2/6 systolic ejection murmur in aortic area. ABDOMEN: Distended but nonspecific tenderness is noted. MUSCULOSKELETAL SYSTEM: Severe arthritis. EXTREMITIES: Show 2+ pitting edema knee down. NEUROLOGIC: Awake, alert, and oriented x3. No focal signs. PSYCHIATRIC: There is no evidence of depression. DIAGNOSTIC DATA: EKG showed sinus rhythm, possible old anteroseptal wall CA. Chest x-ray shows CHF. Pro-BNP is elevated at 1500 plus. Creatinine is 1.6. ASSESSMENT: A 77-year-old female with a history of congestive heart failure, appears to be more of a diastolic failure. Previous echocardiogram done on February 26 had shown EF of 50% to 55%. PLAN: At this point, is to admit to telemetry, diuretics, and continue with beta-blockers and HERNAN inhibitors. We will add nitrates. We will discuss with the family if they are agreeable for angiogram, possible ischemic etiology, although they did not want it on the previous occasions. I thank you kindly. Victor Hugo Mccoy MD
[2017-10-28] MEDS: (Novolin R) Insulin Human Regular 100 units/ml vial SC SCH ×4 (08:20→22:26)
[2017-10-28] MEDS: Pantoprazole 40 mg EC Tab PO SCH (09:40)
[2017-10-28] MEDS: GlipiZIDE 5 mg SR Tab PO SCH (09:40)
--- NOTE | 2017-10-28 12:05 | CP.PCM.PN ---
Subjective - Date & Time of Evaluation Date of Evaluation: 10/28/17 Time of Evaluation: 12:03 - Subjective Subjective: pains all over.breathing better.ct noted. Objective - Vital Signs/Intake and Output Vital Signs (last 24 hours): Temp Pulse Resp BP Pulse Ox 97.8 F 88 20 112/88 99 10/28/17 08:08 10/28/17 08:51 10/28/17 08:08 10/28/17 09:41 10/28/17 08:08 Intake and Output: 10/28/17 10/28/17 06:59 18:59 Intake Total 320 Balance 320 - Medications Medications: Current Medications Alprazolam (Xanax) 0.5 mg PO BID PRN PRN Reason: Anxiety Amlodipine Besylate (Norvasc) 5 mg PO QAM [facility] Last Admin: 10/28/17 09:40 Dose: 5 mg Aspirin (Aspirin Chewable) 81 mg PO DAILY [facility] Last Admin: 10/28/17 09:41 Dose: 81 mg Clopidogrel Bisulfate (Plavix) 75 mg PO DAILY [facility] Last Admin: 10/28/17 09:40 Dose: 75 mg Furosemide (Lasix) 20 mg IVP BID [facility] Last Admin: 10/28/17 09:41 Dose: 20 mg Gabapentin (Neurontin) 600 mg PO BID [facility] Last Admin: 10/28/17 09:40 Dose: 600 mg Glipizide (Glucotrol Xl) 5 mg PO DAILY [facility] Last Admin: 10/28/17 09:40 Dose: 5 mg Heparin Sodium (Porcine) (Heparin) 5,000 units SC Q12 [facility] Last Admin: 10/28/17 09:42 Dose: 5,000 units Insulin Human NPH (Novolin N) 20 unit SC QPM [facility] Insulin Human Regular (Novolin R) 0 unit SC ACHS [facility] PRN Reason: Protocol Last Admin: 10/28/17 08:20 Dose: 1 unit Losartan Potassium (Cozaar) 100 mg PO DAILY [facility] Last Admin: 10/28/17 09:40 Dose: 100 mg Nebivolol (Bystolic) 20 mg PO QPM [facility] Pantoprazole Sodium (Protonix Ec Tab) 40 mg PO DAILY [facility] Last Admin: 10/28/17 09:40 Dose: 40 mg Rosuvastatin Calcium (Crestor) 10 mg PO HS [facility] Last Admin: 10/27/17 21:47 Dose: 10 mg Zolpidem Tartrate (Ambien) 5 mg PO HS PRN PRN Reason: Sleep - Labs Labs: 10/27/17 11:44 10/28/17 06:56 - Constitutional Appears: No Acute Distress, Chronically Ill - Head Exam Head Exam: NORMOCEPHALIC - Neck Exam Neck Exam: Normal Inspection - Respiratory Exam Respiratory Exam: Clear to Ausculation Bilateral - Cardiovascular Exam Cardiovascular Exam: REGULAR RHYTHM - GI/Abdominal Exam GI & Abdominal Exam: Soft - Extremities Exam Extremities Exam: absent: Pedal Edema - Neurological Exam Neurological Exam: Alert, Oriented x3 Assessment and Plan - Assessment and Plan (Free Text) Assessment: chf,poss pneumonia.pul eval Plan: pul eval.ct iv lasix
[2017-10-28] MEDS ORDERED: Oxycodone/Acetaminophen 5/325 mg Tab PO PRN (12:09)
--- NOTE | 2017-10-28 16:21 | CP.PCM.CON ---
History of Present Illness - History of Present Illness History of Present Illness: Reason for consultation: right lung infiltrate 77-year-old female with diabetes, hypertension, arthritis, lacunar infarct presented to emergency room with abdominal pain. Chest x-ray done showed right lung infiltrate. Patient denies fever but complaining of slight cough. No shortness of breath. Review of Systems - Review of Systems All systems: reviewed and no additional remarkable complaints except Past Patient History - Infectious Disease Hx of Infectious Diseases: None - Past Medical History & Family History Past Medical History?: Yes - Past Social History Smoking Status: Never Smoked - CARDIAC Hx Cardiac Disorders: Yes Hx Hypercholesterolemia: Yes Hx Hypertension: Yes - PULMONARY Hx Respiratory Disorders: No - NEUROLOGICAL Hx Neurological Disorder: No Hx Transient Ischemic Attacks (TIA): Yes (3 YEARS AGO) - HEENT Hx HEENT Problems: Yes Hx Cataracts: Yes (KENDRA.) - RENAL Hx Chronic Kidney Disease: No - ENDOCRINE/METABOLIC Hx Endocrine Disorders: Yes Hx Diabetes Mellitus Type 2: Yes - HEMATOLOGICAL/ONCOLOGICAL Hx Blood Disorders: No Hx Blood Transfusions: No - INTEGUMENTARY Hx Dermatological Problems: No - MUSCULOSKELETAL/RHEUMATOLOGICAL Hx Musculoskeletal Disorders: No Hx Falls: No - GASTROINTESTINAL Hx Gastrointestinal Disorders: Yes Hx Gastritis: Yes - GENITOURINARY/GYNECOLOGICAL Hx Genitourinary Disorders: No Hx Urinary Tract Infection: Yes - PSYCHIATRIC Hx Psychophysiologic Disorder: No Hx Substance Use: No - SURGICAL HISTORY Hx Surgeries: Yes Hx Cholecystectomy: Yes - ANESTHESIA Hx Anesthesia: Yes Hx Anesthesia Reactions: No Hx Malignant Hyperthermia: No Has any member of the family had a problem w/ anesthesia?: No Meds Allergies/Adverse Reactions: Allergies Allergy/AdvReac Type Severity Reaction Status Date / Time No Known Allergies Allergy Verified 10/27/17 10:10 - Medications Medications: Current Medications Alprazolam (Xanax) 0.5 mg PO BID PRN PRN Reason: Anxiety Amlodipine Besylate (Norvasc) 5 mg PO QAM [facility] Last Admin: 10/28/17 09:40 Dose: 5 mg Aspirin (Aspirin Chewable) 81 mg PO DAILY [facility] Last Admin: 10/28/17 09:41 Dose: 81 mg Clopidogrel Bisulfate (Plavix) 75 mg PO DAILY [facility] Last Admin: 10/28/17 09:40 Dose: 75 mg Furosemide (Lasix) 20 mg IVP BID [facility] Last Admin: 10/28/17 09:41 Dose: 20 mg Gabapentin (Neurontin) 600 mg PO BID [facility] Last Admin: 10/28/17 09:40 Dose: 600 mg Glipizide (Glucotrol Xl) 5 mg PO DAILY [facility] Last Admin: 10/28/17 09:40 Dose: 5 mg Heparin Sodium (Porcine) (Heparin) 5,000 units SC Q12 [facility] Last Admin: 10/28/17 09:42 Dose: 5,000 units Ceftriaxone Sodium 1 gm/ (Sodium Chloride) 100 mls @ 100 mls/hr IVPB DAILY [facility] Azithromycin 500 mg/ Sodium (Chloride) 250 mls @ 250 mls/hr IVPB DAILY [facility] Insulin Human NPH (Novolin N) 20 unit SC QPM [facility] Insulin Human Regular (Novolin R) 0 unit SC ACHS [facility] PRN Reason: Protocol Last Admin: 10/28/17 12:10 Dose: 3 unit Losartan Potassium (Cozaar) 100 mg PO DAILY [facility] Last Admin: 10/28/17 09:40 Dose: 100 mg Nebivolol (Bystolic) 20 mg PO QPM [facility] Oxycodone/Acetaminophen (Percocet 5/325 Mg Tab) 1 tab PO Q6H PRN PRN Reason: Pain, moderate (4-7) Stop: 10/31/17 12:10 Pantoprazole Sodium (Protonix Ec Tab) 40 mg PO DAILY [facility] Last Admin: 10/28/17 09:40 Dose: 40 mg Rosuvastatin Calcium (Crestor) 10 mg PO HS [facility] Last Admin: 10/27/17 21:47 Dose: 10 mg Zolpidem Tartrate (Ambien) 5 mg PO HS PRN PRN Reason: Sleep Physical Exam - Eye Exam Eye Exam: Normal appearance - ENT Exam ENT Exam: Mucous Membranes Moist - Neck Exam Neck exam: Positive for: Normal Inspection - Respiratory Exam Respiratory Exam: Rales - Cardiovascular Exam Cardiovascular Exam: REGULAR RHYTHM - GI/Abdominal Exam GI & Abdominal Exam: Normal Bowel Sounds, Soft - Extremities Exam Extremities exam: Positive for: normal inspection - Neurological Exam Neurological exam: Alert, Oriented x3 Results - Vital Signs Recent Vital Signs: Last Vital Signs Temp 98.9 F 10/28/17 16:00 Pulse 73 10/28/17 16:00 Resp 20 10/28/17 16:00 BP 128/66 10/28/17 16:00 Pulse Ox 95 10/28/17 16:00 - Labs Result Diagrams: 10/27/17 11:44 10/28/17 06:56 Labs: Laboratory Results - last 24 hr 10/27/17 10/27/17 10/27/17 18:42 18:44 19:51 Sodium Potassium Chloride Carbon Dioxide Anion Gap BUN Creatinine Est GFR ( Amer) Est GFR (Non-Af Amer) POC Glucose (mg/dL) 38 L* 41 L 82 Random Glucose Calcium 10/27/17 10/28/17 10/28/17 21:21 02:09 06:30 Sodium Potassium Chloride Carbon Dioxide Anion Gap BUN Creatinine Est GFR ( Amer) Est GFR (Non-Af Amer) POC Glucose (mg/dL) 184 H 209 H 198 H Random Glucose Calcium 10/28/17 10/28/17 06:56 12:15 Sodium 140 Potassium 3.6 Chloride 107 Carbon Dioxide 24 Anion Gap 13 BUN 29 H Creatinine 1.5 H Est GFR ( Amer) 41 Est GFR (Non-Af Amer) 33 POC Glucose (mg/dL) 285 H Random Glucose 192 H Calcium 8.0 L Assessment & Plan (1) Pulmonary infiltrate in right lung on CXR Status: Acute Comment: chest x-ray showed right lung infiltrate. Slightly high white count. Check pro calcitonin level. Antibiotic coverage
[2017-10-28] MEDS: (Novolin N) Insulin Human Isophane (NPH) 100 u/ml 10 ml vial SC SCH (18:14)
[2017-10-28] MEDS: Azithromycin 500 MG in Sodium Chloride 0.9% 250 ML IVPB SCH (19:15)
[2017-10-29 07:56] LABS: CALCIUM 8.9 mg/dl (8.6-10.4)
[2017-10-29] MEDS: (Novolin R) Insulin Human Regular 100 units/ml vial SC SCH ×4 (08:43→21:53)
[2017-10-29] MEDS: GlipiZIDE 5 mg SR Tab PO SCH (09:36)
[2017-10-29] MEDS: Pantoprazole 40 mg EC Tab PO SCH (09:36)
[2017-10-29] MEDS ORDERED: Atropine-Diphenoxylate 0.025-2.5 mg Tab PO ONE (10:00)
--- NOTE | 2017-10-29 15:05 | CP.PCM.PN ---
Subjective - Date & Time of Evaluation Date of Evaluation: 10/29/17 Time of Evaluation: 15:03 - Subjective Subjective: diarrea better.seen by pul ,dr rushing.on zithromax Objective - Vital Signs/Intake and Output Vital Signs (last 24 hours): Temp Pulse Resp BP Pulse Ox 98.7 F 73 20 152/73 H 94 L 10/29/17 08:48 10/29/17 08:48 10/29/17 08:48 10/29/17 09:34 10/29/17 08:48 Intake and Output: 10/29/17 10/29/17 06:59 18:59 Intake Total 250 Balance 250 - Medications Medications: Current Medications Alprazolam (Xanax) 0.5 mg PO BID PRN PRN Reason: Anxiety Amlodipine Besylate (Norvasc) 5 mg PO QAM [facility] Last Admin: 10/29/17 09:35 Dose: 5 mg Aspirin (Aspirin Chewable) 81 mg PO DAILY [facility] Last Admin: 10/29/17 09:35 Dose: 81 mg Clopidogrel Bisulfate (Plavix) 75 mg PO DAILY [facility] Last Admin: 10/29/17 09:36 Dose: 75 mg Furosemide (Lasix) 20 mg IVP BID [facility] Last Admin: 10/29/17 09:34 Dose: 20 mg Gabapentin (Neurontin) 600 mg PO BID [facility] Last Admin: 10/29/17 09:36 Dose: 600 mg Glipizide (Glucotrol Xl) 5 mg PO DAILY [facility] Last Admin: 10/29/17 09:36 Dose: 5 mg Heparin Sodium (Porcine) (Heparin) 5,000 units SC Q12 [facility] Last Admin: 10/29/17 09:35 Dose: 5,000 units Azithromycin 500 mg/ Sodium (Chloride) 250 mls @ 250 mls/hr IVPB Q24H [facility] Insulin Human NPH (Novolin N) 20 unit SC QPM [facility] Last Admin: 10/28/17 18:14 Dose: 20 unit Insulin Human Regular (Novolin R) 0 unit SC ACHS CAROLYN PRN Reason: Protocol Last Admin: 10/29/17 12:25 Dose: 2 unit Losartan Potassium (Cozaar) 100 mg PO DAILY [facility] Last Admin: 10/29/17 09:36 Dose: 100 mg Nebivolol (Bystolic) 20 mg PO QPM [facility] Last Admin: 10/28/17 18:13 Dose: 20 mg Oxycodone/Acetaminophen (Percocet 5/325 Mg Tab) 1 tab PO Q6H PRN PRN Reason: Pain, moderate (4-7) Stop: 10/31/17 12:10 Pantoprazole Sodium (Protonix Ec Tab) 40 mg PO DAILY [facility] Last Admin: 10/29/17 09:36 Dose: 40 mg Rosuvastatin Calcium (Crestor) 10 mg PO HS [facility] Last Admin: 10/28/17 22:26 Dose: 10 mg Zolpidem Tartrate (Ambien) 5 mg PO HS PRN PRN Reason: Sleep - Labs Labs: 10/27/17 11:44 10/29/17 07:17 - Constitutional Appears: No Acute Distress - Head Exam Head Exam: NORMOCEPHALIC - Neck Exam Neck Exam: Normal Inspection - Respiratory Exam Respiratory Exam: Clear to Ausculation Bilateral - Cardiovascular Exam Cardiovascular Exam: REGULAR RHYTHM - GI/Abdominal Exam GI & Abdominal Exam: Soft - Extremities Exam Extremities Exam: absent: Pedal Edema - Neurological Exam Neurological Exam: Alert, Oriented x3 Assessment and Plan - Assessment and Plan (Free Text) Assessment: pneumonia, chf Plan: ct zithromax.
--- NOTE | 2017-10-29 15:14 | CP.PCM.PN ---
Subjective - Date & Time of Evaluation Date of Evaluation: 10/29/17 Time of Evaluation: 12:20 - Subjective Subjective: patient seen and examined No shortness of breath or cough Being treated for pneumonia Elevated pro calcitonin level Continue present treatment for now Followup culture and sensitivity Objective - Vital Signs/Intake and Output Vital Signs (last 24 hours): Temp Pulse Resp BP Pulse Ox 98.7 F 73 20 152/73 H 94 L 10/29/17 08:48 10/29/17 08:48 10/29/17 08:48 10/29/17 09:34 10/29/17 08:48 Intake and Output: 10/29/17 10/29/17 06:59 18:59 Intake Total 250 Balance 250 - Medications Medications: Current Medications Alprazolam (Xanax) 0.5 mg PO BID PRN PRN Reason: Anxiety Amlodipine Besylate (Norvasc) 5 mg PO QAM [facility] Last Admin: 10/29/17 09:35 Dose: 5 mg Aspirin (Aspirin Chewable) 81 mg PO DAILY [facility] Last Admin: 10/29/17 09:35 Dose: 81 mg Clopidogrel Bisulfate (Plavix) 75 mg PO DAILY [facility] Last Admin: 10/29/17 09:36 Dose: 75 mg Furosemide (Lasix) 20 mg IVP BID [facility] Last Admin: 10/29/17 09:34 Dose: 20 mg Gabapentin (Neurontin) 600 mg PO BID [facility] Last Admin: 10/29/17 09:36 Dose: 600 mg Glipizide (Glucotrol Xl) 5 mg PO DAILY [facility] Last Admin: 10/29/17 09:36 Dose: 5 mg Heparin Sodium (Porcine) (Heparin) 5,000 units SC Q12 [facility] Last Admin: 10/29/17 09:35 Dose: 5,000 units Azithromycin 500 mg/ Sodium (Chloride) 250 mls @ 250 mls/hr IVPB Q24H [facility] Insulin Human NPH (Novolin N) 20 unit SC QPM [facility] Last Admin: 10/28/17 18:14 Dose: 20 unit Insulin Human Regular (Novolin R) 0 unit SC ACHS CAROLYN PRN Reason: Protocol Last Admin: 10/29/17 12:25 Dose: 2 unit Losartan Potassium (Cozaar) 100 mg PO DAILY [facility] Last Admin: 10/29/17 09:36 Dose: 100 mg Nebivolol (Bystolic) 20 mg PO QPM [facility] Last Admin: 10/28/17 18:13 Dose: 20 mg Oxycodone/Acetaminophen (Percocet 5/325 Mg Tab) 1 tab PO Q6H PRN PRN Reason: Pain, moderate (4-7) Stop: 10/31/17 12:10 Pantoprazole Sodium (Protonix Ec Tab) 40 mg PO DAILY [facility] Last Admin: 10/29/17 09:36 Dose: 40 mg Rosuvastatin Calcium (Crestor) 10 mg PO HS [facility] Last Admin: 10/28/17 22:26 Dose: 10 mg Zolpidem Tartrate (Ambien) 5 mg PO HS PRN PRN Reason: Sleep - Labs Labs: 10/27/17 11:44 10/29/17 07:17 Assessment and Plan (1) Pulmonary infiltrate in right lung on CXR Status: Acute
[2017-10-29] MEDS: Azithromycin 500 MG in Sodium Chloride 0.9% 250 ML IVPB SCH (17:46)
[2017-10-29] MEDS: (Novolin N) Insulin Human Isophane (NPH) 100 u/ml 10 ml vial SC SCH (17:47)
[2017-10-30] MEDS: (Novolin R) Insulin Human Regular 100 units/ml vial SC SCH ×4 (08:16→22:38)
[2017-10-30 08:49] LABS: BASO # 0.1 K/uL (0.0-0.2); BASO % 1.5 % (0.0-2.0); EOS # 0.5 K/uL (0.0-0.7); EOS % 4.8 % (0.0-4.0); HEMOGLOBIN 11.3 g/dL (11.0-16.0); LYMPH % 20.6 % (20.0-40.0); MEAN CORPUSCULAR HEMOGLOBIN 30.4 pg (27.0-31.0); MEAN PLATELET VOLUME 9.4 fL (7.2-11.7); MONO % 10.3 % (0.0-10.0); NEUT % 62.8 % (50.0-75.0); NRBC % 0.1 % (0.0-2.0); RBC 3.71 Mil/uL (3.80-5.20); RED CELL DISTRIBUTION WIDTH 16.1 % (11.5-14.5); WHITE BLOOD COUNT 9.6 K/uL (4.8-10.8)
[2017-10-30 09:04] LABS: CALCIUM 8.8 mg/dl (8.6-10.4)
[2017-10-30] MEDS: GlipiZIDE 5 mg SR Tab PO SCH (09:25)
[2017-10-30] MEDS: Pantoprazole 40 mg EC Tab PO SCH (09:26)
--- NOTE | 2017-10-30 12:25 | CP.PCM.PN ---
Subjective - Date & Time of Evaluation Date of Evaluation: 10/30/17 Time of Evaluation: 12:24 - Subjective Subjective: better.neg c diff.vitals ok.labs noted. Objective - Vital Signs/Intake and Output Vital Signs (last 24 hours): Temp Pulse Resp BP Pulse Ox 98.6 F 71 20 118/65 94 L 10/30/17 07:50 10/30/17 07:50 10/30/17 07:50 10/30/17 09:27 10/30/17 07:50 Intake and Output: 10/30/17 10/30/17 06:59 18:59 Intake Total 300 Balance 300 - Medications Medications: Current Medications Alprazolam (Xanax) 0.5 mg PO BID PRN PRN Reason: Anxiety Amlodipine Besylate (Norvasc) 5 mg PO QAM [facility] Last Admin: 10/30/17 09:26 Dose: 5 mg Aspirin (Aspirin Chewable) 81 mg PO DAILY [facility] Last Admin: 10/30/17 09:25 Dose: 81 mg Clopidogrel Bisulfate (Plavix) 75 mg PO DAILY [facility] Last Admin: 10/30/17 09:25 Dose: 75 mg Furosemide (Lasix) 20 mg IVP BID [facility] Last Admin: 10/30/17 09:27 Dose: 20 mg Gabapentin (Neurontin) 600 mg PO BID [facility] Last Admin: 10/30/17 09:26 Dose: 600 mg Glipizide (Glucotrol Xl) 5 mg PO DAILY [facility] Last Admin: 10/30/17 09:25 Dose: 5 mg Heparin Sodium (Porcine) (Heparin) 5,000 units SC Q12 [facility] Last Admin: 10/30/17 09:27 Dose: 5,000 units Azithromycin 500 mg/ Sodium (Chloride) 250 mls @ 250 mls/hr IVPB Q24H [facility] Last Admin: 10/29/17 17:46 Dose: 250 mls/hr Insulin Human NPH (Novolin N) 20 unit SC QPM [facility] Last Admin: 10/29/17 17:47 Dose: 20 unit Insulin Human Regular (Novolin R) 0 unit SC ACHS CAROLYN PRN Reason: Protocol Last Admin: 10/30/17 08:16 Dose: 2 unit Losartan Potassium (Cozaar) 100 mg PO DAILY [facility] Last Admin: 10/30/17 09:25 Dose: 100 mg Nebivolol (Bystolic) 20 mg PO QPM [facility] Last Admin: 10/29/17 18:01 Dose: 20 mg Oxycodone/Acetaminophen (Percocet 5/325 Mg Tab) 1 tab PO Q6H PRN PRN Reason: Pain, moderate (4-7) Stop: 10/31/17 12:10 Pantoprazole Sodium (Protonix Ec Tab) 40 mg PO DAILY [facility] Last Admin: 10/30/17 09:26 Dose: 40 mg Rosuvastatin Calcium (Crestor) 10 mg PO HS [facility] Last Admin: 10/29/17 21:55 Dose: 10 mg Zolpidem Tartrate (Ambien) 5 mg PO HS PRN PRN Reason: Sleep - Labs Labs: 10/30/17 08:42 10/30/17 08:42 - Constitutional Appears: No Acute Distress - Head Exam Head Exam: NORMOCEPHALIC - Respiratory Exam Respiratory Exam: Clear to Ausculation Bilateral - Cardiovascular Exam Cardiovascular Exam: REGULAR RHYTHM - GI/Abdominal Exam GI & Abdominal Exam: Soft - Extremities Exam Extremities Exam: absent: Pedal Edema Assessment and Plan - Assessment and Plan (Free Text) Assessment: ct iv for pneumonia.po lasix
--- NOTE | 2017-10-30 14:30 | RAD ---
Chest x-ray two views History: Pneumonia. Comparison: 10/27/2017 Findings: Mild diffuse increased interstitial lung markings with superimposed patchy increased markings at the right lung base. Subtle infiltrate not excluded. Clinical correlation. Tortuous aorta. Mild cardiomegaly. Degenerative changes in the spine and shoulders. Impression: Mild diffuse increased interstitial lung markings with superimposed patchy increased markings at the right lung base. Subtle infiltrate not excluded. Clinical correlation. Tortuous aorta. Mild cardiomegaly.
[2017-10-30] MEDS: Azithromycin 500 MG in Sodium Chloride 0.9% 250 ML IVPB SCH (17:55)
[2017-10-30] MEDS: (Novolin N) Insulin Human Isophane (NPH) 100 u/ml 10 ml vial SC SCH (17:56)
--- NOTE | 2017-10-30 19:30 | CP.PCM.PN ---
Subjective - Date & Time of Evaluation Date of Evaluation: 10/30/17 Time of Evaluation: 16:40 - Subjective Subjective: patient seen and examined Lying comfortably in no acute distress Denies cough or shortness of breath Afebrile Being treated for pneumonia Switch to p.o. antibiotics Objective - Vital Signs/Intake and Output Vital Signs (last 24 hours): Temp Pulse Resp BP Pulse Ox 98.5 F 72 20 113/69 96 10/30/17 15:37 10/30/17 15:37 10/30/17 15:37 10/30/17 15:37 10/30/17 15:37 Intake and Output: 10/30/17 10/31/17 18:59 06:59 Intake Total 600 Balance 600 - Medications Medications: Current Medications Alprazolam (Xanax) 0.5 mg PO BID PRN PRN Reason: Anxiety Amlodipine Besylate (Norvasc) 5 mg PO QAM [facility] Last Admin: 10/30/17 09:26 Dose: 5 mg Aspirin (Aspirin Chewable) 81 mg PO DAILY [facility] Last Admin: 10/30/17 09:25 Dose: 81 mg Clopidogrel Bisulfate (Plavix) 75 mg PO DAILY [facility] Last Admin: 10/30/17 09:25 Dose: 75 mg Furosemide (Lasix) 40 mg PO DAILY [facility] Gabapentin (Neurontin) 600 mg PO BID [facility] Last Admin: 10/30/17 17:55 Dose: 600 mg Glipizide (Glucotrol Xl) 5 mg PO DAILY [facility] Last Admin: 10/30/17 09:25 Dose: 5 mg Heparin Sodium (Porcine) (Heparin) 5,000 units SC Q12 [facility] Last Admin: 10/30/17 09:27 Dose: 5,000 units Azithromycin 500 mg/ Sodium (Chloride) 250 mls @ 250 mls/hr IVPB Q24H [facility] Last Admin: 10/30/17 17:55 Dose: 250 mls/hr Insulin Human NPH (Novolin N) 20 unit SC QPM [facility] Last Admin: 10/30/17 17:56 Dose: 20 unit Insulin Human Regular (Novolin R) 0 unit SC ACHS [facility] PRN Reason: Protocol Last Admin: 10/30/17 17:55 Dose: 2 unit Losartan Potassium (Cozaar) 100 mg PO DAILY [facility] Last Admin: 10/30/17 09:25 Dose: 100 mg Nebivolol (Bystolic) 20 mg PO QPM [facility] Last Admin: 10/30/17 18:06 Dose: 20 mg Oxycodone/Acetaminophen (Percocet 5/325 Mg Tab) 1 tab PO Q6H PRN PRN Reason: Pain, moderate (4-7) Stop: 10/31/17 12:10 Pantoprazole Sodium (Protonix Ec Tab) 40 mg PO DAILY [facility] Last Admin: 10/30/17 09:26 Dose: 40 mg Rosuvastatin Calcium (Crestor) 10 mg PO HS [facility] Last Admin: 10/29/17 21:55 Dose: 10 mg Zolpidem Tartrate (Ambien) 5 mg PO HS PRN PRN Reason: Sleep - Labs Labs: 10/30/17 08:42 10/30/17 08:42 Assessment and Plan (1) Pulmonary infiltrate in right lung on CXR Status: Acute
[2017-10-31 01:33] VITALS: TEMP 98.8
[2017-10-31] MEDS: (Novolin R) Insulin Human Regular 100 units/ml vial SC SCH ×2 (08:30→12:30)
[2017-10-31] MEDS: Pantoprazole 40 mg EC Tab PO SCH (10:22)
[2017-10-31] MEDS: GlipiZIDE 5 mg SR Tab PO SCH (10:23)
[2017-10-31 10:26] VITALS: BP 133/77
[2017-10-31 11:24] VITALS: PULSE 74
[2017-10-31 11:32] VITALS: O2SAT 94
--- NOTE | 2017-10-31 15:28 | PCM.HF ---
Heart Failure Core Measure - Heart Failure Ejection Fraction: 40 % or Greater (ECHO DONE IN JANUARY 2017 OUTPATIENT, EF 50- 55%) HERNAN Inhibitor Prescribed: No Contraindication/Reason for not providing: ON ARB Beta-Sue Prescribed: None Contraindication/Reason for not providing: ON NEBIVOLOL 20 MG PO QPM Angiotensin II Receptor Sue Prescribed: Yes AnticoagulationTherapy for Atrial Fibrillation/Atrialflutter: No Contraindication/Reason for not providing: NO AFIB Aldosterone Antagonist Prescribed: No Contraindication/Reason for not providing: EF >40 Hydralazine Nitrate Prescribed: No Contraindication/Reason for not providing: EF >40 Implantable Cardioverter Defibrillator Therapy: No Contraindication/Reason for not providing: NO H/O; EF >40 Cardiac Resynchronization Therapy Prescribed: No Contraindication/Reason for not providing: NO H/O; EF >40 - Follow up Will be discharged to: Home Follow Up Date (must be within 7 days from discharge): 11/04/17 Follow Up Time: 09:00
--- NOTE | 2017-11-01 08:10 | DS ---
HOSPITAL COURSE: This is a 77-year-old female who came with mild congestive heart failure. She had increasing shortness of breath. She was treated with diuretics with the improvement. She is diabetic, hypertensive, has high cholesterol. Echocardiogram had shown normal LV systolic function in the past. She has probably diastolic heart failure. She also had some pneumonia, which is being treated with antibiotics without improvement. Followup chest x-ray will be obtained as an outpatient after two weeks. She will continue on Zithromax at this point. Patient was seen by Dr. Burk on Pulmonary consultation. She has done well now. She is afebrile. Vital signs are stable. She will follow up with me in about 10 days' time. FINAL DIAGNOSES: Congestive heart failure, hypertension, pneumonia. Victor Hugo Mccoy MD
== END 2017-10-31 16:11 | disposition home or self-care (01) | DRG 291 ==
LOC: C.ER 09:53 → C.9E 12:25 → C.6T 16:30
PROVIDERS: ADMIT Internal Medicine Cardiovascular Disease; ATTEND Internal Medicine Cardiovascular Disease
DX: I11.0 Hypertensive heart disease with heart failure (principal); J18.9 Pneumonia, unspecified organism; E11.9 Type 2 diabetes mellitus without complications; M06.9 Rheumatoid arthritis, unspecified; E78.00 Pure hypercholesterolemia, unspecified; I25.10 Atherosclerotic heart disease of native coronary artery without angina pectoris; I50.30 Unspecified diastolic (congestive) heart failure; Z79.84 Long term (current) use of oral hypoglycemic drugs; Z79.899 Other long term (current) drug therapy; Z86.73 Personal history of transient ischemic attack (TIA), and cerebral infarction without residual deficits

== ENCOUNTER 2018-01-31 10:28 | Emergency (ER) | payer MEDICARE, OTHER ==
[2018-01-31 10:36] VITALS: RESP 18; BMI 40.4
[2018-01-31] MEDS ORDERED: Sodium Chloride 0.9% 1,000 ML IV SCH (11:00)
[2018-01-31] MEDS ORDERED: Oxycodone/Acetaminophen 5/325 mg Tab PO STA (11:00)
--- NOTE | 2018-01-31 11:05 | C.PDOC ---
History Of Present Illness 77 y/o female presents to ED with c/o of generalized pain, decreased appetite, high blood pressure and memory loss for "couple of weeks". As per daughter patient has occasional sugar level drops and states patient today woke up with swollen legs. Daughter states patient had HTN medication 3 months ago and symptoms have developed since with no improvement. Patient denies vomiting, abdominal pain or diarrhea. HPI obtained mostly from daughter Time Seen by Provider: 01/31/18 10:44 Chief Complaint (Nursing): Medical Clearance History Per: Patient, Family History/Exam Limitations: no limitations Onset/Duration Of Symptoms: Days Current Symptoms Are (Timing): Still Present Past Medical History Reviewed: Historical Data, Nursing Documentation, Vital Signs Vital Signs: Last Vital Signs Temp 98.4 F 01/31/18 10:33 Pulse 90 01/31/18 10:33 Resp 18 01/31/18 10:33 BP 154/86 H 01/31/18 10:33 Pulse Ox 98 01/31/18 12:44 - Medical History PMH: Arthritis, Back Problems, Colonic Polyps, Diabetes, Gastritis, HTN, Hypercholesterolemia, Rheumatoid Arthritis, TIA (3 YEARS AGO) Surgical History: Back Surgery (WITH HARDWARE), Cholecystectomy, Endoscopy - [facility] Procedures COLONOSCOPY (12/30/14) ENDOSC POLYPECTOMY OF LG INTEST (03/03/15) Family History: States: No Known Family Hx - Social History Hx Tobacco Use: No Hx Alcohol Use: No Hx Substance Use: No - Immunization History Hx Tetanus Toxoid Vaccination: No Hx Influenza Vaccination: Yes Hx Pneumococcal Vaccination: Yes Review Of Systems Constitutional: Negative for: Fever, Chills Gastrointestinal: Negative for: Vomiting, Abdominal Pain Musculoskeletal: Positive for: Other (Genralized body pain) Neurological: Positive for: Headache. Negative for: Weakness, Numbness Physical Exam - Physical Exam Appears: Non-toxic, No Acute Distress, Other (Obese) Skin: Warm, Dry, No Rash Head: Atraumatic, Normacephalic Eye(s): bilateral: Normal Inspection Oral Mucosa: Moist Neck: Normal ROM, Supple Cardiovascular: Rhythm Regular, No Murmur Respiratory: Normal Breath Sounds, No Rales, No Rhonchi, No Wheezing Gastrointestinal/Abdominal: Soft, No Tenderness, No Guarding, No Rebound Extremity: Normal ROM, No Pedal Edema, Capillary Refill (<2 seconds) Pulses: Left Radial: Normal Neurological/Psych: Oriented x3, Normal Speech, Normal Cognition ED Course And Treatment - Laboratory Results Result Diagrams: 01/31/18 11:11 01/31/18 11:11 O2 Sat by Pulse Oximetry: 98 (RA) Pulse Ox Interpretation: Normal Medical Decision Making Medical Decision Making: Impression: multiple complaints of chronic conditions Plan: * ECG * Blood work * UA ordered * IV fluids and Percocet administered Progress: Accu check at ED is 267. Labs reviewed no acute changes from prior visits CXR shows cardiomegaly and increased interstitial lung markings Patient remained afebrile alert and oriented. She was observed to eat food from tray and tolerated. She still has back pain, but is chronic [address] Mccoy who will see patient in office, agrees no acute findings or clinical indication for admission also needs to see Dr Diego is bobbin hauler. I explained results to patient and family at bedside and there is no further need for workup or admission at this time. Family feels comfortable taking patient home and will follow up outpatient Disposition Counseled Patient/Family Regarding: Diagnosis, Need For Followup - Disposition Referrals: Victor Hugo Mccoy MD [Staff Provider] - Disposition: HOME/ ROUTINE Disposition Time: 12:41 Condition: STABLE Additional Instructions: Follow up with your primary medical doctor, bobbin hauler and pain management further evaluation. Continue with your usual medications as prescribed. Return to the emergency department at any time if symptoms persist or worsen. Instructions: Hyperglycemia, Adult (DC) Forms: [facility] (Kinyarwanda) - POA Present On Arrival: Poor Glycemic Control - Clinical Impression Clinical Impression: Diabetes mellitus, HTN (hypertension), Chronic back pain - PA / RESEARCH HYDROLOGIST / Resident Statement MD/DO has reviewed & agrees with the documentation as recorded. - Scribe Statement The provider has reviewed the documentation as recorded by the Gilmar Buchanan All medical record entries made by the Gilmar were at my direction and personally dictated by me. I have reviewed the chart and agree that the record accurately reflects my personal performance of the history, physical exam, medical decision making, and the department course for this patient. I have also personally directed, reviewed, and agree with the discharge instructions and disposition.
[2018-01-31] MEDS ORDERED: Oxycodone/Acetaminophen 5/325 mg Tab ONE (11:14)
[2018-01-31] MEDS ORDERED: Sodium Chloride 0.9% 1,000 ML ONE (11:14)
[2018-01-31 11:15] LABS: BASO # 0.1 K/uL (0.0-0.2); BASO % 0.9 % (0.0-2.0); EOS # 0.2 K/uL (0.0-0.7); EOS % 1.9 % (0.0-4.0); HEMOGLOBIN 12.8 g/dL (11.0-16.0); LYMPH # 1.3 K/uL (1.0-4.3); LYMPH % 16.2 % (20.0-40.0); MEAN CELL VOLUME 90.6 fL (81.0-99.0); MEAN CORPUSCULAR HEMOGLOBIN 30.9 pg (27.0-31.0); MEAN CORPUSCULAR HGB CONC 34.1 g/dL (33.0-37.0); MEAN PLATELET VOLUME 9.1 fL (7.2-11.7); MONO # 0.9 K/uL (0.0-0.8); MONO % 10.9 % (0.0-10.0); NEUT # 5.8 K/uL (1.8-7.0); NEUT % 70.1 % (50.0-75.0); NRBC % 0.2 % (0.0-2.0); RBC 4.16 Mil/uL (3.80-5.20); RED CELL DISTRIBUTION WIDTH 16.6 % (11.5-14.5); WHITE BLOOD COUNT 8.2 K/uL (4.8-10.8)
[2018-01-31 11:34] LABS: CALCIUM 9.3 mg/dl (8.6-10.4)
--- NOTE | 2018-01-31 11:54 | RAD ---
Chest x-ray single frontal view History: Shortness of breath. Comparison: 10/30/2017 Findings: Diffuse increased interstitial lung markings. Venous congestion. Patchy bibasilar airspace opacities. Mild nodularity at the left lung base. Tortuous aorta. Mild cardiomegaly. Degenerative changes in the spine with paravertebral osteophytes. Calcification at the aortic knob. Impression: Diffuse increased interstitial lung markings. Venous congestion. Patchy bibasilar airspace opacities. Mild nodularity at the left lung base. Tortuous aorta. Mild cardiomegaly.
[2018-01-31 12:05] LABS: SQUAMOUS EPITHIAL 25 /hpf (0-5); URINE BACTERIA OCC (<OCC); URINE BILIRUBIN NEGATIVE (NEGATIVE); URINE BLOOD 1+ (NEGATIVE); URINE CLARITY Hazy (Clear); URINE COLOR Amber (YELLOW); URINE GLUCOSE (UA) 1+ mg/dL (Normal); URINE PROTEIN 3+ mg/dL (NEGATIVE); URINE UROBILINOGEN NORMAL mg/dL (0.2-1.0)
[2018-01-31 12:06] LABS: URINE LEUKOCYTE ESTERASE TRACE Leu/uL (Negative)
[2018-01-31 13:50] VITALS: BP 166/94; PULSE 82; TEMP 98.8
[2018-01-31 14:01] VITALS: O2SAT 98
--- NOTE | 2018-02-01 12:54 | CARD ---
APPROVED REPORT EKG Measurement Heart [id number] <Conclusion> Normal sinus rhythm Anteroseptal infarct, age undetermined ST & T wave abnormality, consider lateral ischemia Abnormal ECG
== END 2018-01-31 13:48 | disposition home or self-care (01) ==
LOC: C.ER 10:28
DX: E11.9 Type 2 diabetes mellitus without complications (principal); I10 Essential (primary) hypertension; G89.29 Other chronic pain
CPT/HCPCS: 71045; 80053; 81001; 82948; 83880; 85025; 93005; 96360; 96361; 99285; J7040

== ENCOUNTER 2018-04-17 07:13 | Day surgery (SDC) | payer MEDICARE, OTHER ==
[2018-04-17] MEDS ORDERED: Propofol 10 mg/ml Inj (20 ML) ONE ×2 (08:39→08:45)
--- NOTE | 2018-04-17 08:42 | CP.SDSHP ---
Same Day Surgery H & P - History Proposed Procedure: Colonoscopy Pre-Op Diagnosis: High risk screening: history of colon polyps - Previous Medical/Surgical History Cardiac: Hypertension Endocrine/Metabolic: Diabetes Neuro: TIA/CVA Previous Surgical History: cholecystectomy, cataract surgery, back surgery - Allergies Allergies: Allergies No Known Allergies Allergy (Verified 04/14/18 10:33) - Current Medications Current Medications: See reconciliation sheet - Physical Exam General Appearance: WD WN female in NAD Vital Signs: Vital Signs 04/17/18 07:40 Temperature 97.5 F L Pulse Rate 77 Respiratory 19 Rate Blood Pressure 137/81 O2 Sat by Pulse 99 Oximetry Mental Status: Alert & Oriented x3 Neuro: WNL Heart: WNL Lungs: WNL GI: WNL - {Optional Preform as Required} Abdomen: WNL - Impression Impression: High risk screening: history of colon polyps Pt. Evaluated Today:Candidate for Anesthesia & Procedure: Yes - Date & Time Date: 04/17/18 Time: 08:42 Short Stay Discharge - Short Stay Discharge Admitting Diagnosis/Reason for Visit: DIVERTICULAR OF COLON Disposition: HOME/ ROUTINE
[2018-04-17] MEDS ORDERED: Lidocaine Hydrochloride 5 ML INJ ONE (08:50)
[2018-04-17 09:56] VITALS: TEMP 97; O2SAT 100
[2018-04-17 10:03] VITALS: BP 162/70; PULSE 70; RESP 12
== END 2018-04-17 10:45 | disposition home or self-care (01) ==
LOC: C.ENDO 07:13
PROVIDERS: ATTEND Internal Medicine Gastroenterology
DX: D12.3 Benign neoplasm of transverse colon (principal); K57.30 Diverticulosis of large intestine without perforation or abscess without bleeding; K64.0 First degree hemorrhoids; Z12.11 Encounter for screening for malignant neoplasm of colon; Z86.010 Personal history of colon polyps; E11.9 Type 2 diabetes mellitus without complications; I10 Essential (primary) hypertension; Z86.73 Personal history of transient ischemic attack (TIA), and cerebral infarction without residual deficits
CPT/HCPCS: 45385; 82948; 88305; J2704

== ENCOUNTER 2018-12-29 19:32 | Observation (INO) | payer MEDICARE, OTHER ==
[2018-12-29 19:56] VITALS: BMI 39.4
--- NOTE | 2018-12-29 20:06 | C.PDOC ---
History Of Present Illness 78 yr old Female w/ hx of Anxiety, Arthritis, CHF, Depression, DM2, Diverticulitis, Gastritis, Choley, HTN, HLD, Chronic Kidney Disease, RA, TIA p/w abdominal pain. Pt notes abdominal pain over the past 3 days, burning, epigastric area, first time occurence, without radiation, associated with nausea but without vomiting episodes. No constipation or diarrhea. No dark or bloody stool. Took vicodin normally reserved for her back for her abdominal pain without much relief. No chest pain or sob. No back pain. No fall or trauma. No headache or neck pain. No vaginal d/c or rash. No back pain worse than normal. No fever, chills or night sweats. NO SI or HI No joint pain worse than normal NO headache or FND or weakness No other complaints Chief Complaint (Nursing): Abdominal Pain Past Medical History Vital Signs: Last Vital Signs Temp 98.1 F 12/29/18 19:56 Pulse 75 12/29/18 19:56 Resp 18 12/29/18 19:56 BP 133/71 12/29/18 19:56 Pulse Ox 97 12/29/18 19:56 - Medical History PMH: Anxiety, Arthritis, Back Problems, CHF, Colonic Polyps, Dementia, Depression, Diabetes, Diverticulitis, Gastritis, Gall Bladder Disease, HTN, Hypercholesterolemia, Hyperthyroidism, Pneumonia, Chronic Kidney Disease, Rheumatoid Arthritis, TIA Denies: Fractures Surgical History: Back Surgery (WITH HARDWARE), Cholecystectomy, Endoscopy Denies: Pacemaker - [facility] Procedures COLONOSCOPY (12/30/14) ENDOSC POLYPECTOMY OF LG INTEST (03/03/15) Family History: States: Unknown Family Hx - Social History Hx Tobacco Use: No Hx Alcohol Use: No Hx Substance Use: No - Immunization History Hx Tetanus Toxoid Vaccination: No Hx Influenza Vaccination: Yes Hx Pneumococcal Vaccination: Yes Review Of Systems Constitutional: Negative for: Fever, Chills, Sweats, Weakness, Malaise Eyes: Negative for: Pain, Vision Change, Conjunctivae Inflammation, Eyelid Inflammation ENT: Negative for: Ear Pain, Ear Discharge, Nose Pain, Nose Congestion, Mouth Pain Cardiovascular: Negative for: Chest Pain, Palpitations Respiratory: Negative for: Cough, Shortness of Breath, Hemoptysis, SOB with Excertion, Pleuritic Pain, Sputum Gastrointestinal: Positive for: Nausea, Abdominal Pain. Negative for: Vomiting, Diarrhea, Constipation, Melena, Hematochezia, Hematemesis Genitourinary: Negative for: Dysuria, Frequency, Incontinence, Hematuria, Vaginal Discharge, Vaginal Bleeding Musculoskeletal: Negative for: Neck Pain, Shoulder Pain Skin: Negative for: Rash, Lesions Neurological: Negative for: Weakness, Change in Speech, Headache Psych: Negative for: Anxiety, Depression, Psychosis, Suicidal ideation Physical Exam - Physical Exam Appears: Well, Non-toxic Skin: Normal Color, Warm, Dry Head: Atraumatic, Normacephalic Eye(s): bilateral: Normal Inspection, PERRL, EOMI Nose: Normal Oral Mucosa: Moist Tongue: Normal Appearing Throat: Normal, No Erythema, No Exudate Neck: Normal, Normal ROM, Supple, Other (no meningeal signs) Lymphatic: Normal Exam, No Adenopathy Chest: Symmetrical, No Deformity Cardiovascular: Rhythm Regular Respiratory: Normal Breath Sounds Gastrointestinal/Abdominal: Soft, Tenderness (epigastric), No Organomegaly, No Mass, No Distention, No Guarding, No Rebound, No Hernia Back: Normal Inspection, No CVA Tenderness, No Vertebral Tenderness Extremity: Normal ROM, No Tenderness, No Pedal Edema Extremity: Bilateral: Atraumatic Neurological/Psych: Oriented x3, Normal Speech, Normal Cognition Gait: Steady ED Course And Treatment - Laboratory Results Result Diagrams: 12/29/18 20:15 12/29/18 20:15 O2 Sat by Pulse Oximetry: 97 Medical Decision Making Medical Decision Makin yr old F w/ hx of DM2, CHoley, Tia, gastritis p/w abdominal pain. Likely gastritis type pain given epigastric pain and description of pain after eating but given DM2, age will seek imaging. pt denies any dark or bloody stool Pt notes pmd is [facility], Pending imaging and labs EK, NSR, no stemi 2105 labs largely unremarkable from baseline CKD: CT non-con pending [address] no notable changes noted on eval. No crepitus clinda ordered paged Dr. Cruz admit for [facility] for cellulitis 1258 pt now notes she uses [facility], cancelled admission to [facility]- appreciate consult w/ DR. Aylin V to obs to her service Disposition - Disposition Disposition: HOSPITALIZED Disposition Time: 23:59 Condition: STABLE - Clinical Impression Clinical Impression: Cellulitis
[2018-12-29 20:21] LABS: BASO # 0.1 K/uL (0.0-0.2); BASO % 1.3 % (0.0-2.0); EOS # 0.5 K/uL (0.0-0.7); EOS % 8.2 % (0.0-4.0); LYMPH # 1.6 K/uL (1.0-4.3); LYMPH % 24.3 % (20.0-40.0); MEAN CORPUSCULAR HEMOGLOBIN 31.9 pg (27.0-31.0); MEAN PLATELET VOLUME 9.5 fL (7.2-11.7); MONO # 0.8 K/uL (0.0-0.8); NEUT # 3.6 K/uL (1.8-7.0); NEUT % 54.2 % (50.0-75.0); NRBC % 0.1 % (0.0-2.0); RBC 3.77 Mil/uL (3.80-5.20); RED CELL DISTRIBUTION WIDTH 15.3 % (11.5-14.5); WHITE BLOOD COUNT 6.6 K/uL (4.8-10.8)
[2018-12-29 20:24] LABS: MEAN CELL VOLUME 96.8 fL (81.0-99.0)
[2018-12-29 20:28] LABS: VENOUS BLOOD GAS BASE EXCESS -5.4 mmol/L (0.0-2.0); VENOUS BLOOD GAS PCO2 41 mmHg (40-60); VENOUS BLOOD GAS PO2 40 mm/Hg (30-55); VENOUS BLOOD PH 7.31 (7.32-7.43)
[2018-12-29 20:32] LABS: ALB/GLOB RATIO 1.2 (1.0-2.1); BLOOD UREA NITROGEN 38 mg/dL (7-17); GFR NON-AFRICAN AMERICAN 25; LIPASE 71 U/L (23-300)
[2018-12-29 21:03] LABS: ALT/SGPT 6 U/L (9-52); AST/SGOT 32 U/L (14-36)
[2018-12-29 23:33] LABS: SQUAMOUS EPITHIAL 1 /hpf (0-5); URINE BILIRUBIN NEGATIVE (NEGATIVE); URINE BLOOD NEGATIVE (NEGATIVE); URINE CLARITY Clear (Clear); URINE COLOR Yellow (YELLOW); URINE GLUCOSE (UA) NORMAL (Normal); URINE LEUKOCYTE ESTERASE NEG Leu/uL (Negative); URINE PROTEIN 1+ mg/dL (NEGATIVE); URINE UROBILINOGEN NORMAL mg/dL (0.2-1.0)
[2018-12-30] MEDS ORDERED: Clindamycin 600mg/50ml NS 600 MG/50 ML BAG IVPB ONE (00:46)
[2018-12-30 07:59] VITALS: RESP 20
[2018-12-30 09:21] LABS: BASO # 0.1 K/uL (0.0-0.2); BASO % 1.4 % (0.0-2.0); EOS # 0.5 K/uL (0.0-0.7); EOS % 6.4 % (0.0-4.0); HEMOGLOBIN 11.6 g/dL (11.0-16.0); LYMPH # 1.5 K/uL (1.0-4.3); LYMPH % 21.9 % (20.0-40.0); MEAN CELL VOLUME 95.9 fL (81.0-99.0); MEAN CORPUSCULAR HEMOGLOBIN 32.3 pg (27.0-31.0); MEAN CORPUSCULAR HGB CONC 33.7 g/dL (33.0-37.0); MEAN PLATELET VOLUME 9.2 fL (7.2-11.7); MONO # 0.9 K/uL (0.0-0.8); MONO % 12.8 % (0.0-10.0); NEUT # 4.1 K/uL (1.8-7.0); NEUT % 57.5 % (50.0-75.0); RBC 3.6 Mil/uL (3.80-5.20); WHITE BLOOD COUNT 7.1 K/uL (4.8-10.8)
[2018-12-30 09:45] LABS: CALCIUM 9.4 mg/dl (8.6-10.4)
[2018-12-30] MEDS: Pantoprazole 40 mg EC Tab PO SCH (09:47)
[2018-12-30] MEDS: cefTRIAXone IV 1 gm in Dextros 50 ML IVPB SCH (10:45)
[2018-12-30] MEDS: Sodium Chloride 0.45% 1,000 ML IV SCH (10:47)
[2018-12-30] MEDS: (Novolin R) Insulin Human Regular 100 units/ml vial SC SCH ×3 (12:19→22:08)
--- NOTE | 2018-12-30 13:54 | CT ---
Date of service: 12/29/2018 PROCEDURE: CT Abdomen and Pelvis without intravenous contrast HISTORY: epigastric pain COMPARISON: Comparison is made with the previous study dated 06/20/2018 TECHNIQUE: Axial and reformatted coronal and sagittal CT images of the abdomen and pelvis were obtained without IV or oral contrast administration.. Contrast dose: 0 Radiation dose: Total exam DLP = 1091.27 mGy-cm. This CT exam was performed using one or more of the following dose reduction techniques: Automated exposure control, adjustment of the mA and/or kV according to patient size, and/or use of iterative reconstruction technique. FINDINGS: LOWER THORAX: No evidence of pleural effusion or pneumonia. The heart is enlarged. The there is a small hiatus hernia noted. LIVER: Unremarkable. No gross lesion or ductal dilatation. GALLBLADDER AND BILE DUCTS: Status post cholecystectomy. PANCREAS: Unremarkable. No gross lesion or ductal dilatation. SPLEEN: Unremarkable. ADRENALS: Unremarkable. No mass. KIDNEYS AND URETERS: The kidneys are small in size. No evidence of nephrolithiasis or hydronephrosis. Again noted is low-attenuation cyst at the upper pole of the right kidney measures 2.6 centimeter. VASCULATURE: Unremarkable. No aortic aneurysm. Diffuse atherosclerotic calcification noted in the abdominal aorta and iliac arteries. BOWEL: Colonic diverticulosis are noted without evidence of diverticulitis. APPENDIX: There is no evidence of appendicitis. PERITONEUM: Unremarkable. No free fluid. No free air. LYMPH NODES: Unremarkable. No enlarged lymph nodes. BLADDER: Unremarkable. REPRODUCTIVE: Unremarkable. BONES: Status post internal fixation at L4-L5. Severe degenerative changes at the lower lumbar spine. OTHER FINDINGS: Again noted is subcutaneous density at the left anterior abdominal wall. IMPRESSION: Small hiatus hernia and diffuse distal esophagus mucosal thickening. Otherwise no evidence of acute pathology in the abdomen and pelvis as discussed above. Preliminary report was submitted by [facility] contains concordant findings.
--- NOTE | 2018-12-30 16:24 | CP.PCM.HP ---
History of Present Illness - History of Present Illness History of Present Illness: pt is seen and examined for , H& P dictaed#[id number] covering Present on Admission - Present on Admission Any Indicators Present on Admission: No History of DVT/PE: No History of Uncontrolled Diabetes: No Urinary Catheter: No Decubitus Ulcer Present: No Past Patient History - Infectious Disease Hx of Infectious Diseases: None - Past Medical History & Family History Past Medical History?: Yes - Past Social History Smoking Status: Never Smoked - CARDIAC Hx Congestive Heart Failure: Yes Hx Hypercholesterolemia: Yes Hx Hypertension: Yes Hx Pacemaker: No - PULMONARY Hx Pneumonia: Yes - NEUROLOGICAL Hx Dementia: Yes Hx Transient Ischemic Attacks (TIA): Yes - HEENT Hx Cataracts: Yes Other/Comment: DIABETIC RETINOPATHY WITH BLEED - RENAL Hx Chronic Kidney Disease: Yes - ENDOCRINE/METABOLIC Hx Hyperthyroidism: Yes - HEMATOLOGICAL/ONCOLOGICAL Hx Blood Disorders: No Hx Blood Transfusions: No - INTEGUMENTARY Hx Dermatological Problems: No - MUSCULOSKELETAL/RHEUMATOLOGICAL Hx Arthritis: Yes Hx Fractures: No Hx Rheumatoid Arthritis: Yes - GASTROINTESTINAL Hx Diverticulitis: Yes Hx Gall Bladder Disease: Yes Hx Gastritis: Yes - GENITOURINARY/GYNECOLOGICAL Hx Genitourinary Disorders: No Hx Urinary Tract Infection: Yes - PSYCHIATRIC Hx Anxiety: Yes Hx Depression: Yes Hx Substance Use: No - SURGICAL HISTORY Hx Cholecystectomy: Yes - ANESTHESIA Hx Anesthesia: Yes Hx Anesthesia Reactions: No Hx Malignant Hyperthermia: No Meds Allergies/Adverse Reactions: Allergies Allergy/AdvReac Type Severity Reaction Status Date / Time No Known Allergies Allergy Verified 12/29/18 19:55 Results - Vital Signs Recent Vital Signs: Last Vital Signs Temp 98 F 12/30/18 07:58 Pulse 63 12/30/18 07:58 Resp 20 12/30/18 07:58 BP 111/65 12/30/18 07:58 Pulse Ox 96 12/30/18 07:58 - Labs Result Diagrams: 01/01/19 07:00 01/01/19 07:00 Labs: Laboratory Results - last 24 hr 12/29/18 12/29/18 12/29/18 20:15 20:15 20:25 WBC 6.6 RBC 3.77 L Hgb 12.0 Hct 36.5 MCV 96.8 D MCH 31.9 H MCHC 33.0 RDW 15.3 H Plt Count 252 MPV 9.5 Neut % (Auto) 54.2 Lymph % (Auto) 24.3 [place] % (Auto) 12.0 H Eos % (Auto) 8.2 H Baso % (Auto) 1.3 Neut # (Auto) 3.6 Lymph # (Auto) 1.6 [place] # (Auto) 0.8 Eos # (Auto) 0.5 Baso # (Auto) 0.1 pO2 40 VBG pH 7.31 L VBG pCO2 41 VBG HCO3 20.0 VBG Total CO2 21.9 L VBG O2 Sat (Calc) 80.0 H VBG Base Excess -5.4 L VBG Potassium 3.6 Glucose 181 H Lactate 1.2 FiO2 21.0 Sodium 141 140.0 Potassium 3.9 Chloride 109 H 111.0 H Carbon Dioxide 21 L Anion Gap 14 BUN 38 H Creatinine 1.9 H Est GFR ( Amer) 31 Est GFR (Non-Af Amer) 25 POC Glucose (mg/dL) Random Glucose 176 H D Calcium 9.0 Total Bilirubin 0.5 AST 32 ALT 6 L D Alkaline Phosphatase 62 Troponin I < 0.0120 Total Protein 7.2 Albumin 4.0 Globulin 3.2 Albumin/Globulin Ratio 1.2 Triglycerides Cholesterol LDL Cholesterol Direct HDL Cholesterol Lipase 71 TSH 3rd Generation Venous Blood Potassium 3.6 Urine Color Urine Clarity Urine pH Ur Specific [place] Urine Protein Urine Glucose (UA) Urine Ketones Urine Blood Urine Nitrate Urine Bilirubin Urine Urobilinogen Ur Leukocyte Esterase Urine WBC (Auto) Urine RBC (Auto) Ur Squamous Epith Cells 12/29/18 12/30/18 12/30/18 23:28 07:21 09:13 WBC 7.1 RBC 3.60 L Hgb 11.6 Hct 34.5 MCV 95.9 MCH 32.3 H MCHC 33.7 RDW 15.0 H Plt Count 249 MPV 9.2 Neut % (Auto) 57.5 Lymph % (Auto) 21.9 [place] % (Auto) 12.8 H Eos % (Auto) 6.4 H Baso % (Auto) 1.4 Neut # (Auto) 4.1 Lymph # (Auto) 1.5 [place] # (Auto) 0.9 H Eos # (Auto) 0.5 Baso # (Auto) 0.1 pO2 VBG pH VBG pCO2 VBG HCO3 VBG Total CO2 VBG O2 Sat (Calc) VBG Base Excess VBG Potassium Glucose Lactate FiO2 Sodium Potassium Chloride Carbon Dioxide Anion Gap BUN Creatinine Est GFR ( Amer) Est GFR (Non-Af Amer) POC Glucose (mg/dL) 71 Random Glucose Calcium Total Bilirubin AST ALT Alkaline Phosphatase Troponin I Total Protein Albumin Globulin Albumin/Globulin Ratio Triglycerides Cholesterol LDL Cholesterol Direct HDL Cholesterol Lipase TSH 3rd Generation Venous Blood Potassium Urine Color Yellow Urine Clarity Clear Urine pH 5.0 Ur Specific [place] 1.015 Urine Protein 1+ H Urine Glucose (UA) Normal Urine Ketones Negative Urine Blood Negative Urine Nitrate Negative Urine Bilirubin Negative Urine Urobilinogen Normal Ur Leukocyte Esterase Neg Urine WBC (Auto) 1 Urine RBC (Auto) < 1 Ur Squamous Epith Cells 1 12/30/18 12/30/18 12/30/18 09:13 10:58 16:15 WBC RBC Hgb Hct MCV MCH MCHC RDW Plt Count MPV Neut % (Auto) Lymph % (Auto) [place] % (Auto) Eos % (Auto) Baso % (Auto) Neut # (Auto) Lymph # (Auto) [place] # (Auto) Eos # (Auto) Baso # (Auto) pO2 VBG pH VBG pCO2 VBG HCO3 VBG Total CO2 VBG O2 Sat (Calc) VBG Base Excess VBG Potassium Glucose Lactate FiO2 Sodium 141 Potassium 4.0 Chloride 111 H Carbon Dioxide 21 L Anion Gap 13 BUN 35 H Creatinine 1.8 H Est GFR ( Amer) 33 Est GFR (Non-Af Amer) 27 POC Glucose (mg/dL) 228 H 256 H Random Glucose 115 H D Calcium 9.4 Total Bilirubin AST ALT Alkaline Phosphatase Troponin I Total Protein Albumin Globulin Albumin/Globulin Ratio Triglycerides 182 H D Cholesterol 137 LDL Cholesterol Direct 67 HDL Cholesterol 43 Lipase TSH 3rd Generation 1.16 Venous Blood Potassium Urine Color Urine Clarity Urine pH Ur Specific [place] Urine Protein Urine Glucose (UA) Urine Ketones Urine Blood Urine Nitrate Urine Bilirubin Urine Urobilinogen Ur Leukocyte Esterase Urine WBC (Auto) Urine RBC (Auto) Ur Squamous Epith Cells
[2018-12-31] MEDS: Sodium Chloride 0.45% 1,000 ML IV SCH ×2 (05:55→06:01)
[2018-12-31] MEDS: Levothyroxine 50 MCG TAB PO SCH (05:55)
[2018-12-31] MEDS: (Novolin R) Insulin Human Regular 100 units/ml vial SC SCH ×4 (07:46→22:09)
--- NOTE | 2018-12-31 08:47 | HP ---
LOCATION: The patient is located in room 369, bed A. The patient's PMD is Dr. Victor Hugo Mccoy. Covering, Dr. Victor Hugo Mccoy and Dr. Ajit Santiago. REASON FOR ADMISSION/CHIEF COMPLAINT: Abdominal pain for 3 days. HISTORY OF PRESENT ILLNESS: Mrs. Dallas is an 78-year-old obese elderly female with a past medical history significant for anxiety, arthritis, CHF, depression, type 2 diabetes, diverticulitis, gastritis, status post cholecystectomy, hypertension, hypothyroidism, hyperlipidemia, chronic kidney disease, CVA who was admitted through the emergency room with chief complaints of abdominal pain for about 3 days, severe nausea, no vomiting. As per the patient's daughter, she is complaining of epigastric pain for the last 3 days which is gradually getting worse and decided to bring her to the hospital. Also complains of severe nausea but no fever. No diarrhea. No dysuria or frequency. No headache. No dizziness. No chest pain. No palpitation. Abdominal pain is mostly in epigastric region, and also in the lower abdomen. Denies any bleeding per rectum. PAST MEDICAL HISTORY: Significant for hypertension, diabetes, hyperlipidemia, hypothyroidism, anxiety, arthritis, CHF, depression, diverticulitis, and gastritis, and also history of CVA x2 in the past. PAST SURGICAL HISTORY: Status post disc surgery and also cholecystectomy and cataract surgery. ALLERGIES: NO KNOWN DRUG ALLERGIES. SOCIAL HISTORY: Denies any smoking, alcohol, or drugs. PERSONAL HISTORY: She is . about 4 years ago, and she has 10 children. HOME MEDICATIONS: Include as follows: Levothyroxine 50 mcg daily, Dilaudid, hydrochlorothiazide 25 mg p.o. daily, losartan 100 mg p.o. daily, 20 mg p.o. q.a.m., hydrocodone with Tylenol 2 tablets p.o. b.i.d., Dexilant 60 mg p.o. at breakfast, Plavix 75 mg p.o. daily, Lipitor 20 mg p.o. q.p.m., aspirin 81 mg daily, alprazolam 0.5 mg p.o. p.r.n. for pain, Ambien 10 mg at bedtime, and Novolin R 20 units b.i.d. Also Novolin N 50 units b.i.d. as per the pharmacy, glipizide 5 mg p.o. daily, and gabapentin 600 mg p.o. b.i.d. REVIEW OF THE SYSTEMS: Significant for epigastric pain and abdominal pain and nausea. All other review of systems are reviewed and are negative. PHYSICAL EXAMINATION: VITAL SIGNS: As follows: Blood pressure this morning 111/65, pulse 63, respirations 20, temperature 98, saturation 96% and height 4 feet 11 inches, weight is 195 pounds. BMI 39.4. GENERAL: Mrs. Dallas is an 78-year-old elderly obese female, moderately built, moderately nourished, not in acute distress. HEENT: Pupils normal and reactive to accommodation. Conjunctivae pink. Sclerae anicteric. Tongue is moist. Trachea is midline. LUNGS: Symmetric on both sides. Bilateral breath sounds present. Clear to auscultation. CARDIOVASCULAR SYSTEM: [place] at the fifth intercostal space, midclavicular line. S1, S2 audible. No murmur or gallop. ABDOMEN: Normal in appearance. Soft, tympanitic. No guarding. No rigidity. No hepatosplenomegaly. The patient has diffuse tenderness in the epigastric and also in the lower abdomen. No redness of the skin, and no ecchymosis of the abdomen abdominal wall. No abdominal bruit. CENTRAL NERVOUS SYSTEM: The patient is alert, awake, oriented x3. Nonfocal neuro examination. Cranial nerves II through XII grossly intact. Sensory and motor system, within normal limits. EXTREMITIES: No cyanosis, no clubbing, no edema. Dorsalis pedis pulses are now feeble. LABORATORY DATA: Her laboratory data include as follows: As of 12/29/2018, WBC 6.6, hemoglobin 12, hematocrit is 36.5, platelets 252. VBG, pH 7.31, pO2 of 40, pCO2 of 41, bicarb 20, and saturation 80%. Sodium 141, potassium 3.9, chloride 109, CO2 of 21, BUN 38, creatinine 1.9, glucose 176, calcium 9, total bili 0.5, AST 32, ALT 6, alkaline phosphatase 62, troponin 0.012. Total protein 7.2, albumin is 4. Lipase 71. Urinalysis, yellow clear, pH 5, specific 1.015 protein 1+, glucose normal, ketones negative, blood negative, nitrite negative, bilirubin negative, urobilinogen normal, leukocyte esterase negative, wbc 1, rbc less than 1, and squamous epithelial 1. Other lab data as of 12/30/2018, WBC 7.1, hemoglobin 11.6, hematocrit is 34.5, platelets 249. Sodium 141, potassium is 4, chloride 111, CO2 of 21, BUN 35, creatinine 1.8, glucose is 115, and calcium 9.4. Cholesterol is 137, triglycerides 182, LDL of 67, HDL 43, and TSH is 1.16. Other reports: CT of the abdomen and pelvis as of 12/29/2018, impression, small hiatus hernia and diffuse distal esophagus mucosal thickening, otherwise, no evidence of acute pathology in the abdomen, pelvis, and preliminary report was submitted by [facility] radiology. The kidneys are small in size. No evidence of nephrolithiasis or hydronephrosis. Again noted is low-attenuation cyst at the upper pole of the right kidney, measures 2.6 mm. Adrenals unremarkable. No masses. Pancreas unremarkable. Gallbladder, status post cholecystectomy. Liver unremarkable. No gross lesion or ductal dilatation. Heart is enlarged. There is a small hiatal hernia noted. No evidence of pleural effusion or pneumonia. EKG, heart rate is 69, DC interval is 176, QRS is 86, QT is 396. T-inversion, aVL, and QS pattern in V1 and V2. No acute ST-T elevation. Official report is pending. IMPRESSION AND PLAN: In summary, Mrs. Dallas is an 78-year-old elderly female, obese with a history of hypertension, diabetes, hyperlipidemia, hypothyroidism, chronic kidney disease, rheumatoid arthritis, transient ischemic attack, cerebrovascular accident x2, depression, diverticulitis, gastritis, status post cholecystectomy, status post disc surgery, status post cataract surgery and intraocular placement, chronic kidney disease who was admitted through the emergency room with abdominal pain and epigastric pain for about 3 days associated with nausea and decreased p.o. intake for 2 to 3 days. No fever. No vomiting. No diarrhea. 1. Abdominal pain, rule out gastritis, rule out peptic ulcer disease. 2. Hiatal hernia. 3. Hypertension. Continue her current medication, losartan and hydrochlorothiazide. 4. Type 2 diabetes. The patient is not sure how much insulin she is taking. We will continue to monitor Accu-Cheks and coverage for the Accu-Cheks with regular insulin, and we will confirm the insulin dose, and we will restart in the morning. 5. Hypothyroidism. Continue Synthroid 50 mcg p.o. daily, and we will request gastrointestinal consult with Dr. Coreas, and also endocrinology consult with Dr. Brandie Vegas if available. Continue Xanax. Continue aspirin. Continue Crestor and subcu heparin every 12 hours and morphine 2 mg IV every 4 hours p.r.n. for pain and gabapentin 600 mg p.o. b.i.d. and Protonix 40 mg p.o. daily. The patient is seen and examined. Dictated for Ajit Santiago MD. Doubt any abdominal wall cellulitis at this time. Wagner Santiago MD
[2018-12-31 08:53] LABS: BASO # 0.1 K/uL (0.0-0.2); EOS # 0.4 K/uL (0.0-0.7); EOS % 4.4 % (0.0-4.0); HEMOGLOBIN 12.9 g/dL (11.0-16.0); LYMPH % 24.4 % (20.0-40.0); MEAN CELL VOLUME 97.1 fL (81.0-99.0); MEAN CORPUSCULAR HEMOGLOBIN 32.3 pg (27.0-31.0); MEAN CORPUSCULAR HGB CONC 33.3 g/dL (33.0-37.0); MEAN PLATELET VOLUME 9.1 fL (7.2-11.7); MONO # 0.8 K/uL (0.0-0.8); MONO % 9.9 % (0.0-10.0); NEUT % 60.3 % (50.0-75.0); NRBC % 0.1 % (0.0-2.0); RBC 3.98 Mil/uL (3.80-5.20); RED CELL DISTRIBUTION WIDTH 15.2 % (11.5-14.5); WHITE BLOOD COUNT 8.2 K/uL (4.8-10.8)
[2018-12-31 08:55] LABS: BLOOD UREA NITROGEN 29 mg/dL (7-17)
[2018-12-31 08:58] LABS: ALBUMIN 4.4 g/dL (3.5-5.0); ALT/SGPT < 6 U/L (9-52); AST/SGOT 31 U/L (14-36); CALCIUM 9.4 mg/dl (8.6-10.4); GFR NON-AFRICAN AMERICAN 29
[2018-12-31] MEDS: Pantoprazole 40 mg EC Tab PO SCH (09:53)
[2018-12-31] MEDS: cefTRIAXone IV 1 gm in Dextros 50 ML IVPB SCH (10:11)
--- NOTE | 2018-12-31 10:33 | CP.PCM.CON ---
History of Present Illness - History of Present Illness History of Present Illness: ASked to see pt for epig pain. Covering Dr Coreas. Reports epig pain x 4 days= sharp mod, on and off, worse after eating. Reports EGD 2 mo ago- in computer there is EGD report from 2017 showing gastritis and biopsy= gastritis, Occ Nausea. No RB, vomiting Review of Systems - Constitutional Constitutional: absent: Fatigue, Fever - EENT Eyes: absent: Diplopia - Cardiovascular Cardiovascular: absent: Chest Pain, Dyspnea - Respiratory Respiratory: absent: Hemoptysis, Wheezing - Gastrointestinal Gastrointestinal: Abdominal Pain, Nausea. absent: Coffee Ground Emesis, Constipation, Diarrhea, Dysphagia, Hematemesis, Hematochezia, Loose Stools, Melena, Vomiting - Genitourinary Genitourinary: absent: Hematuria, Nocturia - Musculoskeletal Musculoskeletal: absent: Muscle Cramps, Myalgias - Integumentary Integumentary: absent: Rash, Jaundice - Neurological Neurological: absent: Convulsions Past Patient History - Infectious Disease Hx of Infectious Diseases: None - Past Medical History & Family History Past Medical History?: Yes - Past Social History Smoking Status: Never Smoked - CARDIAC Hx Congestive Heart Failure: Yes Hx Hypercholesterolemia: Yes Hx Hypertension: Yes Hx Pacemaker: No - PULMONARY Hx Pneumonia: Yes - NEUROLOGICAL Hx Dementia: Yes Hx Transient Ischemic Attacks (TIA): Yes - HEENT Hx Cataracts: Yes Other/Comment: DIABETIC RETINOPATHY WITH BLEED - RENAL Hx Chronic Kidney Disease: Yes - ENDOCRINE/METABOLIC Hx Hyperthyroidism: Yes - HEMATOLOGICAL/ONCOLOGICAL Hx Blood Disorders: No Hx Blood Transfusions: No - INTEGUMENTARY Hx Dermatological Problems: No - MUSCULOSKELETAL/RHEUMATOLOGICAL Hx Arthritis: Yes Hx Fractures: No Hx Rheumatoid Arthritis: Yes - GASTROINTESTINAL Hx Diverticulitis: Yes Hx Gall Bladder Disease: Yes Hx Gastritis: Yes - GENITOURINARY/GYNECOLOGICAL Hx Genitourinary Disorders: No Hx Urinary Tract Infection: Yes - PSYCHIATRIC Hx Anxiety: Yes Hx Depression: Yes Hx Substance Use: No - SURGICAL HISTORY Hx Cholecystectomy: Yes - ANESTHESIA Hx Anesthesia: Yes Hx Anesthesia Reactions: No Hx Malignant Hyperthermia: No Meds Allergies/Adverse Reactions: Allergies Allergy/AdvReac Type Severity Reaction Status Date / Time No Known Allergies Allergy Verified 12/29/18 19:55 - Medications Medications: Current Medications Alprazolam (Xanax) 0.5 mg PO DAILY PRN PRN Reason: Anxiety Aspirin (Aspirin Chewable) 81 mg PO DAILY [facility] Last Admin: 12/31/18 09:53 Dose: 81 mg Gabapentin (Neurontin) 600 mg PO BID [facility] Last Admin: 12/31/18 09:53 Dose: 600 mg Heparin Sodium (Porcine) (Heparin) 5,000 units SC Q12 [facility] Last Admin: 12/31/18 09:53 Dose: 5,000 units Sodium Chloride (Sodium Chloride 0.45%) 1,000 mls @ 50 mls/hr IV .Q20H [facility] Last Admin: 12/31/18 06:01 Dose: Not Given Ceftriaxone Sodium (Rocephin Iv 1 Gm Duplex) 50 mls @ 100 mls/hr IVPB DAILY [facility]; Protocol Last Admin: 12/31/18 10:11 Dose: 100 mls/hr Insulin Human Regular (Novolin R) 1 unit SC ACHS [facility]; Protocol Last Admin: 12/31/18 07:46 Dose: 2 units Levothyroxine Sodium (Synthroid) 50 mcg PO 0630 [facility] Last Admin: 12/31/18 05:55 Dose: 50 mcg Morphine Sulfate (Morphine) 2 mg IVP Q4 PRN PRN Reason: Pain, severe (8-10) Last Admin: 12/31/18 09:53 Dose: 2 mg Pantoprazole Sodium (Protonix Ec Tab) 40 mg PO DAILY [facility] Last Admin: 12/31/18 09:53 Dose: 40 mg Rosuvastatin Calcium (Crestor) 10 mg PO QPM [facility] Last Admin: 12/30/18 17:28 Dose: 10 mg Physical Exam - Constitutional Appears: Non-toxic - Neck Exam Neck exam: Negative for: Tenderness - Respiratory Exam Respiratory Exam: Clear to Auscultation Bilateral - Cardiovascular Exam Cardiovascular Exam: RRR - GI/Abdominal Exam GI & Abdominal Exam: Normal Bowel Sounds, Soft, Tenderness. absent: Distended, Guarding, Mass, Rebound Additional comments: ld epig tenderness - Extremities Exam Extremities exam: Negative for: calf tenderness - Neurological Exam Neurological exam: Alert, Oriented x3 Results - Vital Signs Recent Vital Signs: Last Vital Signs Temp 98.1 F 12/31/18 08:02 Pulse 66 12/31/18 08:02 Resp 20 12/31/18 08:02 BP 155/82 H 12/31/18 08:02 Pulse Ox 96 12/31/18 08:02 - Labs Result Diagrams: 12/31/18 08:15 12/31/18 08:15 Labs: Laboratory Results - last 24 hr 12/30/18 12/30/18 12/30/18 09:13 10:58 16:15 WBC RBC Hgb Hct MCV MCH MCHC RDW Plt Count MPV Neut % (Auto) Lymph % (Auto) [place] % (Auto) Eos % (Auto) Baso % (Auto) Neut # (Auto) Lymph # (Auto) [place] # (Auto) Eos # (Auto) Baso # (Auto) Sodium Potassium Chloride Carbon Dioxide Anion Gap BUN Creatinine Est GFR ( Amer) Est GFR (Non-Af Amer) POC Glucose (mg/dL) 228 H 256 H Random Glucose Hemoglobin A1c 5.7 Calcium Total Bilirubin AST ALT Alkaline Phosphatase Total Protein Albumin 12/30/18 12/31/18 12/31/18 21:08 07:09 08:15 WBC 8.2 RBC 3.98 Hgb 12.9 Hct 38.7 MCV 97.1 MCH 32.3 H MCHC 33.3 RDW 15.2 H Plt Count 286 MPV 9.1 Neut % (Auto) 60.3 Lymph % (Auto) 24.4 [place] % (Auto) 9.9 Eos % (Auto) 4.4 H Baso % (Auto) 1.0 Neut # (Auto) 5.0 Lymph # (Auto) 2.0 [place] # (Auto) 0.8 Eos # (Auto) 0.4 Baso # (Auto) 0.1 Sodium Potassium Chloride Carbon Dioxide Anion Gap BUN Creatinine Est GFR ( Amer) Est GFR (Non-Af Amer) POC Glucose (mg/dL) 274 H 249 H Random Glucose Hemoglobin A1c Calcium Total Bilirubin AST ALT Alkaline Phosphatase Total Protein Albumin 12/31/18 08:15 WBC RBC Hgb Hct MCV MCH MCHC RDW Plt Count MPV Neut % (Auto) Lymph % (Auto) [place] % (Auto) Eos % (Auto) Baso % (Auto) Neut # (Auto) Lymph # (Auto) [place] # (Auto) Eos # (Auto) Baso # (Auto) Sodium 140 Potassium 4.0 Chloride 105 Carbon Dioxide 25 Anion Gap 13 BUN 29 H Creatinine 1.7 H Est GFR ( Amer) 35 Est GFR (Non-Af Amer) 29 POC Glucose (mg/dL) Random Glucose 252 H D Hemoglobin A1c Calcium 9.4 Total Bilirubin 0.5 AST 31 ALT < 6 L Alkaline Phosphatase 73 Total Protein 7.4 Albumin 4.4 Assessment & Plan (1) Abdominal pain Assessment and Plan: h/o gastritis on EGD. Pt reports had egd 2 mo ago.- check report. Also has back surgery- consider radiculopathy. Consider IBS. Rec- PPI, check last EGD. Ct- reviewed: no abd wall cellulitis. No other pathology except h hernia. Doubt biliary dis. Status: Acute (2) Anxiety Status: Acute (3) CHF (congestive heart failure) Status: Acute (4) Chronic back pain Status: Acute (5) Diabetes mellitus Status: Acute (6) HTN (hypertension) Status: Acute (7) TIA (transient ischemic attack) Status: Acute (8) Hypothyroid Status: Acute (9) Rheumatoid arthritis Status: Acute
[2018-12-31 14:36] LABS: ALB/GLOB RATIO 1.5 (1.0-2.1)
--- NOTE | 2018-12-31 15:30 | CP.PCM.PN ---
Subjective - Date & Time of Evaluation Date of Evaluation: 12/31/18 Time of Evaluation: 15:29 - Subjective Subjective: pt is seen and examined, progress note is dictated #[id number] coveing Objective - Vital Signs/Intake and Output Vital Signs (last 24 hours): Temp Pulse Resp BP Pulse Ox 98.1 F 66 20 155/82 H 96 12/31/18 08:02 12/31/18 11:46 12/31/18 08:02 12/31/18 08:02 12/31/18 11:46 Intake and Output: 12/31/18 12/31/18 06:59 18:59 Intake Total 1340 700 Balance 1340 700 - Medications Medications: Current Medications Alprazolam (Xanax) 0.5 mg PO DAILY PRN PRN Reason: Anxiety Aspirin (Aspirin Chewable) 81 mg PO DAILY [facility] Last Admin: 12/31/18 09:53 Dose: 81 mg Gabapentin (Neurontin) 600 mg PO BID [facility] Last Admin: 12/31/18 09:53 Dose: 600 mg Heparin Sodium (Porcine) (Heparin) 5,000 units SC Q12 [facility] Last Admin: 12/31/18 09:53 Dose: 5,000 units Sodium Chloride (Sodium Chloride 0.45%) 1,000 mls @ 50 mls/hr IV .Q20H [facility] Last Admin: 12/31/18 06:01 Dose: Not Given Ceftriaxone Sodium (Rocephin Iv 1 Gm Duplex) 50 mls @ 100 mls/hr IVPB DAILY [facility] ; Protocol Last Admin: 12/31/18 10:11 Dose: 100 mls/hr Insulin Human Regular (Novolin R) 1 unit SC ACHS [facility]; Protocol Last Admin: 12/31/18 12:26 Dose: 4 units Levothyroxine Sodium (Synthroid) 50 mcg PO 0630 [facility] Last Admin: 12/31/18 05:55 Dose: 50 mcg Morphine Sulfate (Morphine) 2 mg IVP Q4 PRN PRN Reason: Pain, severe (8-10) Last Admin: 12/31/18 14:29 Dose: 2 mg Pantoprazole Sodium (Protonix Ec Tab) 40 mg PO DAILY [facility] Last Admin: 12/31/18 09:53 Dose: 40 mg Rosuvastatin Calcium (Crestor) 10 mg PO QPM [facility] Last Admin: 12/30/18 17:28 Dose: 10 mg - Labs Labs: 12/31/18 08:15 12/31/18 08:15
[2018-12-31 16:51] VITALS: O2SAT 95
--- NOTE | 2018-12-31 23:15 | PN ---
DATE: 12/31/2018 LOCATION: Room 369, bed A. The patient was seen and examined, covering Dr. Ajit Santiago. SUBJECTIVE: Mrs. Dallas is an 78-year-old elderly, obese female with past medical history significant for anxiety, arthritis, CHF, depression, type 2 diabetes, diverticulitis, gastritis, hypertension, hyperlipidemia, chronic kidney disease, rheumatoid arthritis, TIA, who was admitted initially through the emergency room with chief complaints of abdominal pain, mostly in the epigastric region and also lower abdomen associated with nausea, but no vomiting. No fever, no cough. No chest pain, no palpitations. No urinary symptoms. No edema of the legs. The patient is feeling much better today and able to tolerate p.o. PHYSICAL EXAMINATION: VITAL SIGNS: As follows: Blood pressure 155/82, pulse 66, respirations 20, temperature 98.1, saturation 96%. Height 4 feet 11 inches and weight is 195 pounds. GENERAL: Mrs. Dallas is an 78-year-old elderly female well built, well nourished, obese, not in distress. HEENT: Pupils normal, reactive to light and accommodation. Conjunctivae pink. Sclerae anicteric. Tongue is moist. Trachea is midline. LUNGS: Symmetric on both sides. Bilateral breath sounds present, clear to auscultation. CARDIOVASCULAR SYSTEM: [place] at the fifth intercostal space, midclavicular line. S1 and S2 audible. No murmur or gallop. ABDOMEN: Normal in appearance. Soft, tympanitic. No guarding. No rigidity. No hepatosplenomegaly. CENTRAL NERVOUS SYSTEM: The patient is alert, awake, oriented x3. Nonfocal neuro examination. Cranial nerves II-XII grossly intact. Sensory and motor system within normal limits. EXTREMITIES: No cyanosis, no clubbing, no edema. CURRENT MEDICATIONS: As follows: Aspirin 81 mg daily, Crestor 10 mg every p.m., subcu heparin 5000 units every 12 hours, morphine 2 mg IV every 4 hours p.r.n., Neurontin 600 mg p.o. b.i.d., Novolin also sliding scale, Protonix 40 mg p.o. daily, Rocephin 1 g daily, IV fluids half normal saline at 50 mL per hour, Synthroid 50 mcg p.o. daily, and Xanax 0.5 mg p.o. daily. LABORATORY DATA: Include as follows: WBC 8.2, hemoglobin 12.9, hematocrit 38.7, and platelets 286. Sodium 140, potassium 4, chloride 105, CO2 25, BUN 29, creatinine 1.7, glucose 252, calcium 9.4. Total bili 0.5, AST 31, ALT less than 6, alkaline phosphatase 73, total protein 7.4, and albumin is 4.4. Blood culture x2 negative day #1. Accu-Chek yesterday at 256, 274, and 249; as of today Accu-Chek 249, 343, and 262. The patient is on Accu-Cheks with coverage. ASSESSMENT AND PLAN: In summary, Mrs. Dallas is an 78-year-old elderly female with history of multiple medical problems including hypertension, diabetes, gastritis, diverticulitis, anxiety, arthritis, congestive heart failure, depression, hypothyroidism, transient ischemic attack, and rheumatoid arthritis, was admitted with epigastric pain and lower abdominal discomfort associated with nausea. 1. Epigastric discomfort, most likely secondary to gastritis, rule out peptic ulcer disease. The patient is evaluated by mold construction supervisor, Dr. Garrison. Continue to follow with GI. Continue proton pump inhibitors. 2. Hypertension. Blood pressure is stable. We will add hydrochlorothiazide 25 mg daily and also will continue losartan 100 mg by mouth daily. 3. Diabetes. Continue Accu-Chek coverage and Endocrinology consult for insulin and for better control of the sugars. The patient does not know how much Lantus she is taking and sometimes she is hypoglycemic, as per the patient's daughter. We will continue Accu-Cheks coverage for now. The patient required only about 5 units yesterday. If she is cleared by GI, we will try to discharge the patient tomorrow. Continue Synthroid. Continue Crestor. Wagner Santiago MD
[2019-01-01] MEDS: Sodium Chloride 0.45% 1,000 ML IV SCH ×2 (03:13→05:39)
[2019-01-01] MEDS: Levothyroxine 50 MCG TAB PO SCH (05:39)
[2019-01-01 07:19] LABS: HEMOGLOBIN 12.8 g/dL (11.0-16.0); MEAN CELL VOLUME 96.3 fL (81.0-99.0); MEAN CORPUSCULAR HEMOGLOBIN 32.2 pg (27.0-31.0); MEAN CORPUSCULAR HGB CONC 33.4 g/dL (33.0-37.0); MEAN PLATELET VOLUME 9.6 fL (7.2-11.7); RBC 3.98 Mil/uL (3.80-5.20); RED CELL DISTRIBUTION WIDTH 14.8 % (11.5-14.5); WHITE BLOOD COUNT 7.4 K/uL (4.8-10.8)
[2019-01-01 07:23] LABS: ALB/GLOB RATIO 1.3 (1.0-2.1); ALBUMIN 4.2 g/dL (3.5-5.0); CALCIUM 9.4 mg/dl (8.6-10.4)
[2019-01-01 08:04] VITALS: BP 185/67; PULSE 75; TEMP 98.9
[2019-01-01] MEDS: (Novolin R) Insulin Human Regular 100 units/ml vial SC SCH ×2 (08:11→11:58)
[2019-01-01] MEDS: Pantoprazole 40 mg EC Tab PO SCH (09:04)
[2019-01-01] MEDS: cefTRIAXone IV 1 gm in Dextros 50 ML IVPB SCH (10:55)
--- NOTE | 2019-01-01 12:23 | CARD ---
APPROVED REPORT Date of service: 12/29/2018 EKG Measurement Heart [id number] <Conclusion> Normal sinus rhythm Possible Septal infarct, age undetermined Abnormal ECG
--- NOTE | 2019-01-01 12:39 | CP.PCM.DIS ---
Provider - Provider Date of Admission: 12/30/18 00:03 Attending physician: Ajit Santiago MD Consults: 12/30/18 16:50 Gastroenterology Consult Routine Comment: Consulting Provider: Haris Coreas Consulting Physician: Haris Coreas Reason for Consult: epigastric pain 12/30/18 17:00 Endocrinology Consult Routine Comment: dm Consulting Provider: Brandie Vegas Consulting Physician: Brandie Vegas Reason for Consult: uncontrolled dm Time Spent in preparation of Discharge (in minutes): 45 (dictated #[id number]) Hospital Course - Lab Results Lab Results: Micro Results 12/30/18 10:16 Blood-Venous Blood Culture - Preliminary NO GROWTH AFTER 48 HOURS 12/30/18 09:13 Blood-Venous Blood Culture - Preliminary NO GROWTH AFTER 48 HOURS Most Recent Lab Values WBC 7.4 K/uL (4.8-10.8) 01/01/19 07:00 RBC 3.98 Mil/uL (3.80-5.20) 01/01/19 07:00 Hgb 12.8 g/dL (11.0-16.0) 01/01/19 07:00 Hct 38.3 % (34.0-47.0) 01/01/19 07:00 MCV 96.3 fL (81.0-99.0) 01/01/19 07:00 MCH 32.2 pg (27.0-31.0) H 01/01/19 07:00 MCHC 33.4 g/dL (33.0-37.0) 01/01/19 07:00 RDW 14.8 % (11.5-14.5) H 01/01/19 07:00 Plt Count 263 K/uL (130-400) 01/01/19 07:00 MPV 9.6 fL (7.2-11.7) 01/01/19 07:00 Neut % (Auto) 60.3 % (50.0-75.0) 12/31/18 08:15 Lymph % (Auto) 24.4 % (20.0-40.0) 12/31/18 08:15 [place] % (Auto) 9.9 % (0.0-10.0) 12/31/18 08:15 Eos % (Auto) 4.4 % (0.0-4.0) H 12/31/18 08:15 Baso % (Auto) 1.0 % (0.0-2.0) 12/31/18 08:15 Neut # (Auto) 5.0 K/uL (1.8-7.0) 12/31/18 08:15 Lymph # (Auto) 2.0 K/uL (1.0-4.3) 12/31/18 08:15 [place] # (Auto) 0.8 K/uL (0.0-0.8) 12/31/18 08:15 Eos # (Auto) 0.4 K/uL (0.0-0.7) 12/31/18 08:15 Baso # (Auto) 0.1 K/uL (0.0-0.2) 12/31/18 08:15 pO2 40 mm/Hg (30-55) 12/29/18 20:25 VBG pH 7.31 (7.32-7.43) L 12/29/18 20:25 VBG pCO2 41 mmHg (40-60) 12/29/18 20:25 VBG HCO3 20.0 mmol/L 12/29/18 20:25 VBG Total CO2 21.9 mmol/L (22-28) L 12/29/18 20:25 VBG O2 Sat (Calc) 80.0 % (40-65) H 12/29/18 20:25 VBG Base Excess -5.4 mmol/L (0.0-2.0) L 12/29/18 20:25 VBG Potassium 3.6 mmol/L (3.6-5.2) 12/29/18 20:25 Sodium 140.0 mmol/l (132-148) 12/29/18 20:25 Chloride 111.0 mmol/L (98-107) H 12/29/18 20:25 Glucose 181 mg/dl (65-105) H 12/29/18 20:25 Lactate 1.2 mmol/L (0.7-2.1) 12/29/18 20:25 FiO2 21.0 % 12/29/18 20:25 Sodium 139 mmol/L (132-148) 01/01/19 07:00 Potassium 3.9 mmol/L (3.6-5.2) 01/01/19 07:00 Chloride 108 mmol/L (98-107) H 01/01/19 07:00 Carbon Dioxide 22 mmol/L (22-30) 01/01/19 07:00 Anion Gap 13 (10-20) 01/01/19 07:00 BUN 28 mg/dL (7-17) H 01/01/19 07:00 Creatinine 1.8 mg/dL (0.7-1.2) H 01/01/19 07:00 Est GFR ( Amer) 33 01/01/19 07:00 Est GFR (Non-Af Amer) 27 01/01/19 07:00 POC Glucose (mg/dL) 296 mg/dL (65-110) H 01/01/19 11:25 Random Glucose 254 mg/dL (65-105) H 01/01/19 07:00 Hemoglobin A1c 5.7 % (4.2-6.5) 12/30/18 09:13 Calcium 9.4 mg/dl (8.6-10.4) 01/01/19 07:00 Phosphorus 2.8 mg/dL (2.5-4.5) 01/01/19 07:00 Magnesium 1.9 mg/dL (1.6-2.3) 01/01/19 07:00 Total Bilirubin 0.5 mg/dL (0.2-1.3) 01/01/19 07:00 AST 36 U/L (14-36) 01/01/19 07:00 ALT 17 U/L (9-52) 01/01/19 07:00 Alkaline Phosphatase 73 U/L (38-126) 01/01/19 07:00 Troponin I < 0.0120 ng/mL (0.00-0.120) 12/29/18 20:15 Total Protein 7.4 g/dL (6.3-8.3) 01/01/19 07:00 Albumin 4.2 g/dL (3.5-5.0) 01/01/19 07:00 Globulin 3.2 gm/dL (2.2-3.9) 01/01/19 07:00 Albumin/Globulin Ratio 1.3 (1.0-2.1) 01/01/19 07:00 Triglycerides 182 mg/dL (0-149) H D 12/30/18 09:13 Cholesterol 137 mg/dL (0-199) 12/30/18 09:13 LDL Cholesterol Direct 67 mg/dL (0-129) 12/30/18 09:13 HDL Cholesterol 43 mg/dL (30-70) 12/30/18 09:13 Lipase 71 U/L (23-300) 12/29/18 20:15 TSH 3rd Generation 1.16 mIU/L (0.46-4.68) 12/30/18 09:13 Venous Blood Potassium 3.6 mmol/L (3.6-5.2) 12/29/18 20:25 Urine Color Yellow (YELLOW) 12/29/18 23:28 Urine Clarity Clear (Clear) 12/29/18 23:28 Urine pH 5.0 (5.0-8.0) 12/29/18 23:28 Ur Specific [place] 1.015 (1.003-1.030) 12/29/18 23:28 Urine Protein 1+ mg/dL (NEGATIVE) H 12/29/18 23:28 Urine Glucose (UA) Normal mg/dL (Normal) 12/29/18 23:28 Urine Ketones Negative mg/dL (NEGATIVE) 12/29/18 23:28 Urine Blood Negative (NEGATIVE) 12/29/18 23:28 Urine Nitrate Negative (NEGATIVE) 12/29/18 23:28 Urine Bilirubin Negative (NEGATIVE) 12/29/18 23:28 Urine Urobilinogen Normal mg/dL (0.2-1.0) 12/29/18 23:28 Ur Leukocyte Esterase Neg Lois/uL (Negative) 12/29/18 23:28 Urine WBC (Auto) 1 /hpf (0-5) 12/29/18 23:28 Urine RBC (Auto) < 1 /hpf (0-3) 12/29/18 23:28 Ur Squamous Epith Cells 1 /hpf (0-5) 12/29/18 23:28 Discharge Plan - Follow Up Plan Condition: STABLE Disposition: HOME/ ROUTINE Instructions: Hypothyroidism (Underactive Thyroid) (DC), Cellulitis (Skin Infection), Adult (DC) Referrals: Ajit Santiago MD [Staff Provider] - Victor Hugo Mccoy MD [Staff Provider] - Haris Coreas MD [Staff Provider] -
--- NOTE | 2019-01-01 17:46 | PCM.HF ---
Heart Failure Core Measure - Heart Failure Ejection Fraction: 40 % or Greater (EF NORMAL) HERNAN Inhibitor Prescribed: No Contraindication/Reason for not providing: on arb Beta-Sue Prescribed: None Contraindication/Reason for not providing: HR controlled Angiotensin II Receptor Sue Prescribed: Yes AnticoagulationTherapy for Atrial Fibrillation/Atrialflutter: No Contraindication/Reason for not providing: no afib Aldosterone Antagonist Prescribed: No Contraindication/Reason for not providing: EF >40% Hydralazine Nitrate Prescribed: No Contraindication/Reason for not providing: EF >40% Implantable Cardioverter Defibrillator Therapy: No Contraindication/Reason for not providing: EF >40% Cardiac Resynchronization Therapy Prescribed: No Contraindication/Reason for not providing: not indicated - Follow up Will be discharged to: Home Follow Up Date (must be within 7 days from discharge): 01/08/19 Follow Up Time: 10:00
--- NOTE | 2019-01-02 05:20 | DS ---
ADMITTING DIAGNOSES: Epigastric pain, rule out gastritis/peptic ulcer disease, hypertension, diabetes, hyperlipidemia, anxiety, arthritis, depression, and gastritis. DISCHARGE DIAGNOSES: Epigastric pain, hiatal hernia, rule out gastritis/peptic ulcer disease, hypertension, diabetes. HISTORY OF PRESENT ILLNESS AND HOSPITAL COURSE: Mrs. Dallas is an 78-year-old elderly obese female with a past medical history significant for anxiety, arthritis, CHF, depression, type 2 diabetes, diverticulitis, gastritis, status post cholecystectomy, hypertension, hyperlipidemia, chronic kidney disease, rheumatoid arthritis, TIA who was presented with the chief complaints of abdominal pain, epigastric and also lower abdomen for three days prior to the admission morning in nature mostly in epigastric and also associated with nausea and vomiting. No chest pain. No palpitation. No fever. No cough. No diarrhea. No edema of the legs. No urinary symptoms. The patient was started on PPIs and also on IV antibiotics for possible cellulitis of the abdominal wall, but there is no clear evidence of cellulitis. The patient was also evaluated by Gastroenterology, Dr. Garrison, for epigastric pain suggested to continue PPIs and follow up with Dr. Coreas. The patient is feeling much better today. No nausea or vomiting. Tolerating p.o. intake since admission. The patient is eager to go home this morning with her daughter. No chest pain or palpitation. No fever. No cough. PHYSICAL EXAMINATION: VITAL SIGNS: This morning as follows: Blood pressure 185/67, pulse 75, respiration 20, temperature 98.9, saturation 95%. Height 4 feet 11 inches. Weight is 195 pounds. GENERAL: Mrs. Dallas is an 78-year-old elderly female, well built, well nourished. HEENT: Pupils normal and reactive to light and accommodation. Conjunctivae pink. Sclerae anicteric. Tongue is moist. Trachea is midline. LUNGS: Symmetric on both sides. Bilateral breath sounds present. Clear to auscultation. CARDIOVASCULAR SYSTEM: [place] at the fifth intercostal space, midclavicular line. S1 and S2 audible. No murmur or gallop. ABDOMEN: Normal in appearance. Protuberant. No tenderness. No guarding. No rigidity. No hepatosplenomegaly. CENTRAL NERVOUS SYSTEM: The patient is alert, awake, oriented x3. Nonfocal neuro examination. Cranial nerves II through XII grossly intact. Sensory and motor system is within normal limits. EXTREMITIES: No cyanosis, no clubbing, no edema. LABORATORY DATA: This morning include as follows: As of 01/01/2019, WBC 7.4, hemoglobin 12.8, hematocrit is 38.3, platelets 263. Sodium 139, potassium 3.9, chloride 108, CO2 of 22, BUN 28, creatinine 1.8, glucose 254, calcium 9.4, phosphorus 2.8, magnesium 1.9. Total bili 0.5, AST 36, ALT 17, alkaline phosphatase 73, total protein 7.4, albumin is 4.2. Blood culture x2 negative, day 2. CURRENT MEDICATIONS: Include as follows: Aspirin 81 mg daily, Cozaar 100 mg p.o. daily, Crestor 10 mg p.o. at bedtime, hydrochlorothiazide 25 mg p.o. daily, morphine 2 mg IV every 4 hours p.r.n., Neurontin 600 mg p.o. b.i.d., Novolin R per sliding scale, Protonix 40 mg p.o. daily, Rocephin 1 g daily, IV fluids half-normal saline 50 mL per hour, Synthroid 50 mcg p.o. daily, and Xanax 0.5 mg p.o. daily. ASSESSMENT: In summary, Mrs. Dallas is an 78-year-old elderly female with a history of hypertension, diabetes, anxiety, arthritis, depression, chronic kidney disease, transient ischemic attack, rheumatoid arthritis who was admitted with epigastric pain and nausea for two to three days prior to the admission. No vomiting. Symptoms improved with Protonix. 1. Epigastric pain, most likely secondary to gastritis versus peptic ulcer disease less likely. 2. Hiatal hernia. 3. Diabetes. 4. Hypertension. PLAN: Continue her insulin and home medications and also continue losartan and hydrochlorothiazide. Continue Protonix. We will discontinue Rocephin and discontinue morphine. Follow up with Dr. Victor Hugo Mccoy as scheduled tomorrow and also follow up with Dr. Coreas as soon as possible and follow up with the skin care consultant, Dr. Brandie Vegas, as an outpatient for better control of the sugars. The patient is seen and examined and dictated for Dr. Ajit Santiago. Wagner Santiago MD [facility] # [id number]
== END 2019-01-01 13:25 | disposition home or self-care (01) ==
LOC: C.ER 19:32 → C.3T 12-30 00:03
PROVIDERS: ADMIT Internal Medicine; ATTEND Internal Medicine
DX: R10.13 Epigastric pain (principal); K44.9 Diaphragmatic hernia without obstruction or gangrene; K29.70 Gastritis, unspecified, without bleeding; E11.65 Type 2 diabetes mellitus with hyperglycemia; I50.9 Heart failure, unspecified; L03.90 Cellulitis, unspecified; E03.9 Hypothyroidism, unspecified; M06.9 Rheumatoid arthritis, unspecified; E11.22 Type 2 diabetes mellitus with diabetic chronic kidney disease; N18.9 Chronic kidney disease, unspecified; Z86.010 Personal history of colon polyps; I13.0 Hypertensive heart and chronic kidney disease with heart failure and stage 1 through stage 4 chronic kidney disease, or unspecified chronic kidney disease; E11.319 Type 2 diabetes mellitus with unspecified diabetic retinopathy without macular edema; F41.9 Anxiety disorder, unspecified; E78.5 Hyperlipidemia, unspecified; E78.00 Pure hypercholesterolemia, unspecified; E66.9 Obesity, unspecified; F03.90 Unspecified dementia, unspecified severity, without behavioral disturbance, psychotic disturbance, mood disturbance, and anxiety; G89.29 Other chronic pain; Z79.890 Hormone replacement therapy; Z86.73 Personal history of transient ischemic attack (TIA), and cerebral infarction without residual deficits; Z87.01 Personal history of pneumonia (recurrent); Z90.49 Acquired absence of other specified parts of digestive tract; Z87.440 Personal history of urinary (tract) infections; Z79.02 Long term (current) use of antithrombotics/antiplatelets; Z79.4 Long term (current) use of insulin; Z79.82 Long term (current) use of aspirin; Z79.899 Other long term (current) drug therapy
CPT/HCPCS: 36415; 74176; 80048; 80053; 80061; 81001; 82803; 82948; 83036; 83690; 83735; 84100; 84443; 84484; 85025; 85027; 87040; 93005; 96365; 96366; 96372; 96375; 96376; 97162; 97530; 99285; G0378; G8978; G8979; J0696; J1644; J2270; J2405; J7030